=== PATIENT | male | born 1985 | race Caucasian/White ===

== ENCOUNTER 2017-06-18 23:03 | Emergency (ER) | payer OTHER, SELFPAY ==
[2017-06-18 23:15] VITALS: O2SAT 99
--- NOTE | 2017-06-18 23:37 | ERPHSYRPT ---
- History of Present Illness Time Seen by Provider: 06/18/17 23:26 Source: patient Exam Limitations: no limitations Patient Subjective Stated Complaint: pt states he was watching tv and suddenly had partial blindness in his lt eye. states headache is 4/10 Triage Nursing Assessment: pt alert and oriented, answers questions approp. pt ambulatory with steady gait noted. respirations nonlabored with lungs cta. puipls equal and reactive. bilat uppr and lower ext strength equal and strong. Physician History: ALL DAY PT HAS HAD A DIFFUSE HEADACHE. ONE HOUR AGO PT LOST LATERAL PERIPHERAL VISION IN HIS LEFT EYE. FEVER, VOMITING, CHEST PAIN, NUMBNESS, WEAKNESS ALL DENIED. Allergies/Adverse Reactions: Iodinated Contrast- Oral and IV Dye Allergy (Mild, Verified 06/18/17 23:18) Itching Home Medications: No Home Meds 1 ea [facility] UD 07/07/15 [History] Hx Tetanus, Diphtheria Vaccination/Date Given: Yes Hx Influenza Vaccination/Date Given: No Hx Pneumococcal Vaccination/Date Given: No Immunizations Up to Date: Yes - Review of Systems Constitutional: No Fever Eyes: Vision Changes Respiratory: No Dyspnea Cardiac: No Chest Pain Abdominal/Gastrointestinal: No Abdominal Pain, No Vomiting Neurological: Headache All Other Systems: Reviewed and Negative - Past Medical History Pertinent Past Medical History: Yes Neurological History: No Pertinent History ENT History: No Pertinent History Cardiac History: Other Respiratory History: Pulmonary Embolism Endocrine Medical History: No Pertinent History Musculoskeletal History: No Pertinent History GI Medical History: No Pertinent History History: No Pertinent History Psycho-Social History: Attention Deficit Disorder, Bipolar, Depression Male Reproductive Disorders: No Pertinent History Other Medical History: adhd - Past Surgical History Past Surgical History: Yes Neuro Surgical History: No Pertinent History Cardiac: No Pertinent History Respiratory: No Pertinent History Gastrointestinal: No Pertinent History Genitourinary: No Pertinent History Musculoskeletal: Orthopedic Surgery Male Surgical History: No Pertinent History Other Surgical History: left ankle fracture repair. DISTAL HUMEROUS FRACTURE REPAIR - Social History Smoking Status: Former smoker How long have you smoked: 5-6 YEARS Exposure to second hand smoke: No Drug Use: none Patient Lives Alone: No - Nursing Vital Signs Nursing Vital Signs: Initial Vital Signs Temperature 98.4 F 06/18/17 23:07 Pulse Rate 100 H 06/18/17 23:07 Respiratory Rate 18 06/18/17 23:07 Blood Pressure 168/98 06/18/17 23:07 O2 Sat by Pulse Oximetry 99 06/18/17 23:07 Pain Scale Pain Intensity 4 - Physical Exam General Appearance: alert Eye Exam: PERRL/EOMI, eyes nml inspection, other (FUNDOSCOPIC EXAM FOR LEFT EYE REVEALS SHARP TEMPORAL DISC MARGINS AND SPONTANEOUS VENOUS PULSATIONS.) Ears, Nose, Throat Exam: pharynx normal, moist mucous membranes Neck Exam: normal inspection Respiratory Exam: lungs clear Cardiovascular Exam: normal heart sounds Gastrointestinal/Abdomen Exam: soft, normal bowel sounds Back Exam: normal range of motion Extremity Exam: normal inspection, normal range of motion, No pedal edema Neurologic Exam: alert, cooperative, normal mood/affect, sensation nml, No motor deficits Skin Exam: warm, dry SpO2 Interpretation: normal SpO2: 99 Oxygen Delivery: Room Air - Course Nursing assessment & vital signs reviewed: Yes - CT Exams Head CT Interpretation: Tele-radiologist Report (NO ACUTE INTRACRANIAL ABNORMALITY.) Ordered Tests: Active Orders 24 hr Category Date Time Status HEAD WITHOUT CONTRAST [CT] Stat Exams 06/18/17 23:31 Taken CBC W DIFF Stat Lab 06/18/17 23:57 Completed CMP Stat Lab 06/18/17 23:57 Completed D-DIMER QUANTITATION Stat Lab 06/18/17 23:57 Completed MAGNESIUM Stat Lab 06/18/17 23:57 Completed UA W/RFX UR CULTURE Stat Lab 06/18/17 00:08 Completed Urine Triage Profile Stat Lab 06/18/17 00:08 Completed Lab/Rad Data: Laboratory Result Diagrams 06/18/17 23:57 06/18/17 23:57 Laboratory Results 06/18/17 06/18/17 06/18/17 Range/Units 23:57 23:57 23:57 WBC 10.4 (4.0-10.5) K/mm3 RBC 5.26 (4.1-5.6) M/mm3 Hgb 15.5 (12.5-18.0) gm/dl Hct 45.0 (42-50) % MCV 85.6 (78-100) fl MCH 29.5 (26-32) pg MCHC 34.4 (32-36) g/dl RDW 12.3 (11.5-14.0) % Plt Count 234 (150-450) K/mm3 MPV 9.2 (6-9.5) fl Gran % 57.2 (36.0-66.0) % Lymphocytes % 30.2 (24.0-44.0) % Monocytes % 8.3 (0.0-12.0) % Eosinophils % 3.7 (0.00-5.0) % Basophils % 0.6 (0.0-0.4) % Basophils # 0.06 (0-0.4) D-Dimer < 200 (0-500) ng/mL Sodium 142 (136-145) mEq/L Potassium 4.3 (3.5-5.1) mEq/L Chloride 104 (98-107) mEq/L Carbon Dioxide 27.1 (21-32) mEq/L Anion Gap 15.0 (5-15) MEQ/L BUN 11 (9-20) mg/dL Creatinine 1.19 (0.55-1.30) mg/dl Estimated GFR > 60 ML/MIN Glucose 97 (70-110) MG/DL Calcium 9.4 (8.5-10.1) mg/dL Magnesium 1.9 (1.8-2.4) mg/dL Total Bilirubin 0.20 (0.2-1.0) mg/dL AST 15 (15-37) U/L ALT 48 (12-78) U/L Alkaline Phosphatase 88 (46-116) U/L Serum Total Protein 7.5 (6.4-8.2) gm/dL Albumin 3.7 (3.4-5.0) g/dL Ur Collection Type Urine Color (YELLOW) Urine Appearance (CLEAR) Urine pH (5-6) Ur Specific [place] (1.005-1.025) Urine Protein (Negative) Urine Ketones (NEGATIVE) Urine Blood (0-5) Ramirez/ul Urine Nitrite (NEGATIVE) Urine Bilirubin (NEGATIVE) Urine Urobilinogen (0-1) mg/dL Ur Leukocyte Esterase (NEGATIVE) Urine Glucose (NEGATIVE) mg/dL Urine Opiates Level (NEGATIVE) Ur Methadone (NEGATIVE) Urine Barbiturates (NEGATIVE) Ur Phencyclidine (PCP) (NEGATIVE) Urine Amphetamine (NEGATIVE) U Benzodiazepine Level (NEGATIVE) Urine Cocaine (NEGATIVE) Urine Marijuana (THC) (NEGATIVE) Specimen Received 06/18/17 06/18/17 Range/Units 00:08 00:08 WBC (4.0-10.5) K/mm3 RBC (4.1-5.6) M/mm3 Hgb (12.5-18.0) gm/dl Hct (42-50) % MCV (78-100) fl MCH (26-32) pg MCHC (32-36) g/dl RDW (11.5-14.0) % Plt Count (150-450) K/mm3 MPV (6-9.5) fl Gran % (36.0-66.0) % Lymphocytes % (24.0-44.0) % Monocytes % (0.0-12.0) % Eosinophils % (0.00-5.0) % Basophils % (0.0-0.4) % Basophils # (0-0.4) D-Dimer (0-500) ng/mL Sodium (136-145) mEq/L Potassium (3.5-5.1) mEq/L Chloride (98-107) mEq/L Carbon Dioxide (21-32) mEq/L Anion Gap (5-15) MEQ/L BUN (9-20) mg/dL Creatinine (0.55-1.30) mg/dl Estimated GFR ML/MIN Glucose (70-110) MG/DL Calcium (8.5-10.1) mg/dL Magnesium (1.8-2.4) mg/dL Total Bilirubin (0.2-1.0) mg/dL AST (15-37) U/L ALT (12-78) U/L Alkaline Phosphatase (46-116) U/L Serum Total Protein (6.4-8.2) gm/dL Albumin (3.4-5.0) g/dL Ur Collection Type VOID Urine Color YELLOW (YELLOW) Urine Appearance CLEAR (CLEAR) Urine pH 6.0 (5-6) Ur Specific [place] 1.020 (1.005-1.025) Urine Protein NEGATIVE (Negative) Urine Ketones NEGATIVE (NEGATIVE) Urine Blood NEGATIVE (0-5) Ramirez/ul Urine Nitrite NEGATIVE (NEGATIVE) Urine Bilirubin NEGATIVE (NEGATIVE) Urine Urobilinogen NORMAL (0-1) mg/dL Ur Leukocyte Esterase NEGATIVE (NEGATIVE) Urine Glucose NEGATIVE (NEGATIVE) mg/dL Urine Opiates Level NEG. (NEGATIVE) Ur Methadone NEG. (NEGATIVE) Urine Barbiturates NEG. (NEGATIVE) Ur Phencyclidine (PCP) NEG. (NEGATIVE) Urine Amphetamine NEG. (NEGATIVE) U Benzodiazepine Level NEG. (NEGATIVE) Urine Cocaine NEG. (NEGATIVE) Urine Marijuana (THC) NEG. (NEGATIVE) Specimen Received 06/19/17 0005 - Departure Time of Disposition: 00:52 Departure Disposition: Home Clinical Impression: HEADACHE Condition: Stable Critical Care Time: No Referrals: DOCTOR,NO FAMILY [Primary Care Provider] - Instructions: Headache Additional Instructions: FOLLOW UP WITH PRIVATE DOCTOR TOMORROW.
[2017-06-19 00:05] LABS: BASOPHIL % 0.6 % (0.0-0.4); Eosinophil % 3.7 % (0.00-5.0); Granulocytes % 57.2 % (36.0-66.0); Lymphocytes % 30.2 % (24.0-44.0); Mean Cell Volume 85.6 fl (78-100); Mean Corpuscular Hemoglobin 29.5 pg (26-32); Mean Platelet Volume 9.2 fl (6-9.5); Monocytes % 8.3 % (0.0-12.0); Platelet Count 234 K/mm3 (150-450); Red Blood Count 5.26 M/mm3 (4.1-5.6); Red Cell Distribution Width 12.3 % (11.5-14.0); White Blood Count 10.4 K/mm3 (4.0-10.5)
[2017-06-19 00:15] LABS: ADD URINE CULTURE? NO (NO); Bilirubin NEGATIVE (NEGATIVE); Blood NEGATIVE Ery/ul (0-5); COMPLETE URINE MICROSCOPIC? NO; Collection Type VOID; Glucose NEGATIVE (NEGATIVE); Leukocyte Esterase NEGATIVE (NEGATIVE)
[2017-06-19 00:29] LABS: ALBUMIN 3.7 g/dL (3.4-5.0); ALKALINE PHOSPHATASE 88 U/L (46-116); BLOOD UREA NITROGEN 11 mg/dL (9-20); CHLORIDE 104 mEq/L (98-107); Carbon Dioxide 27.1 mEq/L (21-32); Glucose 97 MG/DL (70-110); MAGNESIUM 1.9 mg/dL (1.8-2.4); Potassium 4.3 mEq/L (3.5-5.1); SGOT/AST 15 U/L (15-37); SGPT/ALT 48 U/L (12-78); SODIUM 142 mEq/L (136-145); Total Protein 7.5 gm/dL (6.4-8.2)
[2017-06-19 01:03] VITALS: BP 167/92; PULSE 98
--- NOTE | 2017-06-19 09:13 | XRAY ---
Indication: Headache and left eye vision loss. No known injury. Multiple contiguous axial images obtained through the head without contrast. Comparison: December 24, 2015. Stable normal appearing brain parenchyma, ventricles, and bony calvarium. Visualized paranasal sinuses and mastoid air cells are clear. Impression: Stable normal CT head without contrast exam. Comment: Preliminary interpretation was made by [facility]. No discrepancy. CTDI 68.98
== END 2017-06-19 01:03 | disposition home or self-care (01) ==
LOC: ED 23:03
DX: R51 Headache (principal); H53.132 Sudden visual loss, left eye
CPT/HCPCS: 36415; 70450; 80053; 80307; 81002; 83735; 85025; 85379; 99284

== ENCOUNTER 2017-07-18 18:23 | Emergency (ER) | payer OTHER, SELFPAY | END 2017-07-18 18:49 | disposition left against medical advice (07) | LOC: ED 18:23 | DX: Z53.9 Procedure and treatment not carried out, unspecified reason (principal) ==

== ENCOUNTER 2017-07-31 17:19 | Emergency (ER) | payer OTHER, SELFPAY ==
[2017-07-31] MEDS ORDERED: MOTRIN 600 MG PO STA (17:30)
[2017-07-31] MEDS ORDERED: Rocephin 1000 MG INJ IM STA (17:30)
[2017-07-31] MEDS ORDERED: Sodium Chloride 0.9% 1000 ML 1,000 ML IV SCH (17:30)
--- NOTE | 2017-07-31 17:39 | ERPHSYRPT ---
- History of Present Illness Time Seen by Provider: 07/31/17 17:25 Source: patient Exam Limitations: no limitations Patient Subjective Stated Complaint: PT REPROTS IN PAST 10 HRS NOSE HAS BECOME RED WARM ET PAINFUL-STATES HE CAN FEEL HIS HEARTBEAR IN HIS SINUSES-DENIES INJURY Triage Nursing Assessment: PT PINK WRME T DRY-NO CONGESTION NOTED-RESP EASY ET NONLABORED Physician History: patient with redness and pain of nose onset yesterday; today increased pain; swelling of nose with redness; hx of staph infection of nose in past; some fever ; no trauma; no sore throat; no exposures; n o travel; no N&V; no dental pain or ear pain; some discomfort around sinuses L>R; no epistaxis Timing/Duration: today (worse), yesterday (onset), gradual onset, worse Severity: severe Modifying Factors: Improves With: nothing Associated Symptoms: chills, fever, other (clear nasal drainage from sinus) Allergies/Adverse Reactions: Iodinated Contrast- Oral and IV Dye Allergy (Mild, Verified 07/31/17 17:27) Itching Home Medications: No Home Meds [No Home Meds] 1 [facility] 07/07/15 [History] Hx Tetanus, Diphtheria Vaccination/Date Given: Yes Hx Influenza Vaccination/Date Given: Yes (2016) Hx Pneumococcal Vaccination/Date Given: No Immunizations Up to Date: Yes - Review of Systems Constitutional: Fever, Chills Eyes: Eye Pain (below left ), No Eye Redness, No Itchy, No Photophobia, No Vision Changes Ears, Nose, & Throat: Nose Pain, Nose Congestion, Nose Discharge, Sinus Drainage , No Ear Pain, No Tinnitus, No Epistaxis, No Mouth Pain, No Loose Teeth, No Throat Pain, No Throat Swelling, No Hoarse, No Painful Swallowing Respiratory: No Cough, No Dyspnea, No Wheezing Cardiac: No Chest Pain, No Palpitations, No Syncope Abdominal/Gastrointestinal: No Abdominal Pain, No Nausea, No Vomiting, No Diarrhea Genitourinary Symptoms: No Symptoms Musculoskeletal: No Symptoms Skin: Cellulitis (nose), No Rash, No Skin Lesions Neurological: No Symptoms Psychological: No Symptoms Endocrine: No Symptoms Hematologic/Lymphatic: No Symptoms Immunological/Allergic: No Symptoms - Past Medical History Pertinent Past Medical History: Yes Neurological History: No Pertinent History ENT History: No Pertinent History Cardiac History: Other Respiratory History: Pulmonary Embolism Endocrine Medical History: No Pertinent History Musculoskeletal History: No Pertinent History GI Medical History: No Pertinent History History: No Pertinent History Psycho-Social History: Attention Deficit Disorder, Bipolar, Depression Male Reproductive Disorders: No Pertinent History Other Medical History: adhd - Past Surgical History Past Surgical History: Yes Neuro Surgical History: No Pertinent History Cardiac: No Pertinent History Respiratory: No Pertinent History Gastrointestinal: No Pertinent History Genitourinary: No Pertinent History Musculoskeletal: Orthopedic Surgery Male Surgical History: No Pertinent History Other Surgical History: left ankle fracture repair. DISTAL HUMEROUS FRACTURE REPAIR - Social History Smoking Status: Former smoker How long have you smoked: 5-6 YEARS Exposure to second hand smoke: No Alcohol Use: Socially Drug Use: none Patient Lives Alone: No Significant Family History: no pertinent family hx - Nursing Vital Signs Nursing Vital Signs: Initial Vital Signs Temperature 99.5 F 07/31/17 17:22 Pulse Rate 96 H 07/31/17 17:22 Respiratory Rate 20 07/31/17 17:22 Blood Pressure 147/91 07/31/17 17:22 O2 Sat by Pulse Oximetry 96 07/31/17 17:22 Pain Scale Pain Intensity 5 - Physical Exam General Appearance: moderate distress, alert Eye Exam: PERRL/EOMI, eyes nml inspection, other (no periorbital tenderness but discomfort below left; EOM full without pain), No photophobia Ears, Nose, Throat Exam: TMs normal, pharynx normal, moist mucous membranes, other (dental caries with red, swollen tender nose; no specific lesion; clear nasal d/c; sinus poor transillumination; tender left max), No pharyngeal erythema Neck Exam: normal inspection, non-tender, supple, full range of motion, No meningismus, No Kernig's, No carotid bruit, No JVD, No lymphadenopathy Respiratory Exam: normal breath sounds, lungs clear, airway intact, No chest tenderness, No respiratory distress, No rhonchi, No wheezing Cardiovascular Exam: regular rate/rhythm, normal heart sounds, normal peripheral pulses, capillary refill <2 sec, No murmur Gastrointestinal/Abdomen Exam: soft, normal bowel sounds, No tenderness, No organomegaly Rectal Exam: deferred Back Exam: normal inspection, normal range of motion, No CVA tenderness Extremity Exam: normal inspection, normal range of motion, No pedal edema Neurologic Exam: alert, oriented x 3, cooperative, support worker II-XII nml as tested, normal mood/affect, nml cerebellar function, nml station & gait, sensation nml Skin Exam: normal color, warm, dry, other (red, warm, tender induration nose), No rash, No cyanosis Lymphatic Exam: No adenopathy SpO2 Interpretation: normal SpO2: 96 Oxygen Delivery: Room Air - Course Nursing assessment & vital signs reviewed: Yes - CT Exams Maxillofacial Bones CT Interpretation: Tele-radiologist Report, Other (negative except mild STS nose ) Ordered Tests: Active Orders 24 hr Category Date Time Status Accucheck STAT Care 07/31/17 17:30 Active IV Insertion STAT Care 07/31/17 17:30 Active Pulse Oximetry (ED) STAT Care 07/31/17 17:30 Active Re-Check Vital Signs STAT Care 07/31/17 17:30 Active FACIAL BONES WO CONTRAST [CT] Stat Exams 07/31/17 17:32 Taken BLOOD CULTURE Stat Lab 07/31/17 17:55 Received BMP Stat Lab 07/31/17 17:45 Completed CBC W DIFF Stat Lab 07/31/17 17:45 Completed Lactic Acid Stat Lab 07/31/17 18:07 Completed Medication Summary Generic Name Dose Route Start Last Admin Trade Name Freq PRN Reason Stop Dose Admin Ceftriaxone Sodium mg 07/31/17 17:30 Rocephin 1000 Mg Inj IM 07/31/17 17:31 STAT STA Sodium Chloride 1,000 mls @ 250 mls/hr 07/31/17 17:30 07/31/17 17:51 Sodium Chloride 0.9% 1000 Ml IV 08/30/17 17:29 250 mls/hr .Q4H CADENCE Administration Discontinued Medications Generic Name Dose Route Start Last Admin Trade Name Freq PRN Reason Stop Dose Admin Ceftriaxone Sodium/Dextrose Confirm 07/31/17 18:18 Rocephin 1 Gm-D5w 50 Ml Bag Administered 07/31/17 18:19 Dose 1 g in 50 mls @ ud IV .STK-MED ONE Ibuprofen 600 mg 07/31/17 17:30 07/31/17 17:45 Motrin 600 Mg PO 07/31/17 17:31 600 mg STAT STA Administration Ibuprofen Confirm 07/31/17 17:42 Motrin 600 Mg Administered 07/31/17 17:43 Dose 600 mg .ROUTE .STK-MED ONE Lab/Rad Data: Laboratory Result Diagrams 07/31/17 17:45 07/31/17 17:45 Laboratory Results 07/31/17 07/31/17 07/31/17 Range/Units 18:07 17:45 17:45 WBC 11.1 H (4.0-10.5) K/mm3 RBC 4.54 (4.1-5.6) M/mm3 Hgb 13.6 (12.5-18.0) gm/dl Hct 38.6 L (42-50) % MCV 85.0 (78-100) fl MCH 30.0 (26-32) pg MCHC 35.2 (32-36) g/dl RDW 13.3 (11.5-14.0) % Plt Count 223 (150-450) K/mm3 MPV 9.1 (6-9.5) fl Gran % 63.7 (36.0-66.0) % Lymphocytes % 25.8 (24.0-44.0) % Monocytes % 8.4 (0.0-12.0) % Eosinophils % 1.7 (0.00-5.0) % Basophils % 0.4 (0.0-0.4) % Basophils # 0.04 (0-0.4) Sodium 146 H (136-145) mEq/L Potassium 3.9 (3.5-5.1) mEq/L Chloride 107 (98-107) mEq/L Carbon Dioxide 28.1 (21-32) mEq/L Anion Gap 14.3 (5-15) MEQ/L BUN 15 (9-20) mg/dL Creatinine 1.20 (0.55-1.30) mg/dl Estimated GFR > 60 ML/MIN Glucose 98 (70-110) MG/DL Lactic Acid 1.2 (0.4-2.0) Calcium 9.5 (8.5-10.1) mg/dL reviewed - Progress Progress: re-examined (after meds and CT) Progress Note: 07/31/17 17:40 will check labs; give IV fluids and ATBs; get blood culture and check CT for any periorbital involvement; will recheck 07/31/17 18:[address]; labs pending; IV fluids and meds given; accucheck = 81; will monitor and recheck 07/31/17 18:25 CBC slightly elevated WBC at 11,1 bi sguftl kactuc ok at 1,2; CT pending; ATBs and IV going; no change in exam 07/31/17 18:43 CT , ok; renal function and lytes ok; treatment plan and instructions given Counseled pt/family regarding: lab results, diagnosis, need for follow-up, rad results - Departure Time of Disposition: 18:47 Departure Disposition: Home Clinical Impression: Cellulitis of nose Condition: Stable Critical Care Time: No Referrals: RAJ MATTHEW MD [Primary Care Provider] - Instructions: Cellulitis -- Adult Additional Instructions: warm compresses; clean; Follow-up with family doctor as directed. Call for appointment. Return if any problems. If you smoke please stop. Call or follow up with your family doctor for assistance if you need it to stop. Please wear your seatbelt when driving. Have a nice day. Thank you for allowing us to participate in your care today. :o) Dr Andres Perez Prescriptions: Doxycycline Hyclate 100 mg [Vibramycin 100 mg] 100 mg IV BID #28 tab-cap Hydrocodon/Ibupr 7.5mg/200mg [Vicoprofen 7.5mg/200mg Tablet] 1 tab PO Q6- 8HPRN PRN #14 tablet PRN Reason: Pain
[2017-07-31] MEDS ORDERED: Sodium Chloride 0.9% 1000 ML 1,000 ML ONE (17:42)
[2017-07-31] MEDS ORDERED: MOTRIN 600 MG ONE (17:42)
[2017-07-31 18:05] LABS: BASOPHIL % 0.4 % (0.0-0.4); Eosinophil % 1.7 % (0.00-5.0); Granulocytes % 63.7 % (36.0-66.0); Lymphocytes % 25.8 % (24.0-44.0); Mean Platelet Volume 9.1 fl (6-9.5); Monocytes % 8.4 % (0.0-12.0); Platelet Count 223 K/mm3 (150-450); Red Blood Count 4.54 M/mm3 (4.1-5.6); Red Cell Distribution Width 13.3 % (11.5-14.0); White Blood Count 11.1 K/mm3 (4.0-10.5)
[2017-07-31] MEDS ORDERED: ROCEPHIN 1 Gm-D5w 50 ml Bag** 1 G/50 ML IVPB IV ONE (18:18)
[2017-07-31 18:25] LABS: ANION GAP 14.3 MEQ/L (5-15); BLOOD UREA NITROGEN 15 mg/dL (9-20); CHLORIDE 107 mEq/L (98-107); Carbon Dioxide 28.1 mEq/L (21-32); Glucose 98 MG/DL (70-110); Potassium 3.9 mEq/L (3.5-5.1); SODIUM 146 mEq/L (136-145)
[2017-07-31 18:56] VITALS: BP 143/91; PULSE 78; O2SAT 98
--- NOTE | 2017-08-01 08:41 | XRAY ---
Indication: Nose erythema/swelling. Pain, fever, and infection. No known injury. Multiple contiguous images obtained through the facial bones. Sagittal and coronal reformatted images obtained. Comparison: December 24, 2015. The nose now demonstrates soft tissue swelling. No acute fracture, suspicious bony lesions, or radiopaque foreign body. Orbits including roof, byrd, and floors intact. Paranasal sinuses are pneumatized and clear. Stable minimal nasal septal deviation to the left. There are again scattered centimeter/subcentimeter bilateral cervical/submandibular nodes none pathologically enlarged. Remaining visualized noncontrasted soft tissues including orbits and base of the brain unremarkable. Minimal C3-C5 degenerative disc disease. Impression: 1. Soft tissue swelling of the nose. Based on clinical history, rule out cellulitis. 2. Remaining CT facial bones negative. CT DI 59.47
== END 2017-07-31 18:59 | disposition home or self-care (01) ==
LOC: ED 17:19
DX: J34.0 Abscess, furuncle and carbuncle of nose (principal)
CPT/HCPCS: 36000; 36415; 70486; 80048; 82962; 83605; 85025; 87040; 96360; 96365; 99284; J0696; A9270-GY

== ENCOUNTER 2018-01-20 08:20 | Emergency (ER) | payer OTHER, SELFPAY ==
[2018-01-20] MEDS ORDERED: TYLENOL 325 MG PO ONE (08:48)
[2018-01-20] MEDS ORDERED: PROVENTIL 2.5 MG/3 ML NEB IH ONE ×2 (08:48→09:08)
--- NOTE | 2018-01-20 08:48 | ERPHSYRPT ---
- History of Present Illness Time Seen by Provider: 01/20/18 08:34 Source: patient Patient Subjective Stated Complaint: Pt states "I am sicker than a dog. I have been coughing up this white and neon green stuff. I also am out of my lisinopril. I do not have the money to go to the doctor to get it filled." Triage Nursing Assessment: Pt alert and oriented X 3, skin pwd. Pt ambulates with an upright steady gait, able to speak in clear full sentences. occasional cough Physician History: C: cough Hx: 32 y/o with hx of HTN. Nonsmoker. Cough with white phlegm. Malaise. No fever or chills. Some rhinorrhea. No hx of asthma. 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 He is soon to get insurance. Out of lisinopril due to finances. No hx of kidney problems. Sees Dr Matthew. Allergies/Adverse Reactions: Iodinated Contrast- Oral and IV Dye Allergy (Mild, Verified 07/31/17 17:27) Itching Home Medications: Lisinopril [Lisinopril] 40 mg PO DAILY 01/20/18 [History] Hx Tetanus, Diphtheria Vaccination/Date Given: Yes Hx Influenza Vaccination/Date Given: No Hx Pneumococcal Vaccination/Date Given: No Immunizations Up to Date: Yes - Review of Systems Constitutional: Malaise, No Fever, No Chills Eyes: No Symptoms Ears, Nose, & Throat: Nose Congestion Respiratory: Cough Cardiac: No Chest Pain Abdominal/Gastrointestinal: No Abdominal Pain, No Nausea, No Vomiting, No Diarrhea Genitourinary Symptoms: No Dysuria Skin: No Rash Neurological: No Headache All Other Systems: Reviewed and Negative - Past Medical History Pertinent Past Medical History: Yes Neurological History: No Pertinent History ENT History: No Pertinent History Cardiac History: Other Respiratory History: Pulmonary Embolism Endocrine Medical History: No Pertinent History Musculoskeletal History: No Pertinent History GI Medical History: No Pertinent History History: No Pertinent History Psycho-Social History: Attention Deficit Disorder, Bipolar, Depression Male Reproductive Disorders: No Pertinent History Other Medical History: adhd - Past Surgical History Past Surgical History: Yes Neuro Surgical History: No Pertinent History Cardiac: No Pertinent History Respiratory: No Pertinent History Gastrointestinal: No Pertinent History Genitourinary: No Pertinent History Musculoskeletal: Orthopedic Surgery Male Surgical History: No Pertinent History Other Surgical History: left ankle fracture repair. DISTAL HUMERUS FRACTURE REPAIR - Social History Smoking Status: Former smoker How long have you smoked: 5-6 YEARS Exposure to second hand smoke: No Alcohol Use: Socially Drug Use: none Patient Lives Alone: Yes Significant Family History: no pertinent family hx - Nursing Vital Signs Nursing Vital Signs: Initial Vital Signs Temperature 98.4 F 01/20/18 08:28 Pulse Rate 80 01/20/18 08:28 Respiratory Rate 20 01/20/18 08:28 Blood Pressure 161/101 01/20/18 08:28 O2 Sat by Pulse Oximetry 99 01/20/18 08:28 Pain Scale Pain Intensity 0 - Physical Exam General Appearance: alert Eye Exam: PERRL/EOMI Ears, Nose, Throat Exam: normal ENT inspection, moist mucous membranes Neck Exam: normal inspection, non-tender, supple Respiratory Exam: normal breath sounds, No respiratory distress, No wheezing Cardiovascular Exam: regular rate/rhythm, No murmur Gastrointestinal/Abdomen Exam: soft, No tenderness, No distention Extremity Exam: normal inspection, normal range of motion, No calf tenderness, No pedal edema Neurologic Exam: alert, oriented x 3, cooperative, sensation nml, No motor deficits Skin Exam: warm, dry, No rash SpO2 Interpretation: normal SpO2: 99 Oxygen Delivery: Room Air - Course Nursing assessment & vital signs reviewed: Yes Ordered Tests: Active Orders 24 hr Category Date Time Status CHEST 2 VIEWS (PA AND LAT) Stat Exams 01/20/18 08:48 Completed Respiratory Nebulizer STAT RT 01/20/18 08:48 Active Medication Summary Discontinued Medications Generic Name Dose Route Start Last Admin Trade Name Freq PRN Reason Stop Dose Admin Acetaminophen 650 mg 01/20/18 08:48 01/20/18 09:03 Tylenol 325 Mg PO 01/20/18 08:49 650 mg STAT ONE Administration Acetaminophen Confirm 01/20/18 09:01 Tylenol 325 Mg Administered 01/20/18 09:02 Dose 650 mg .ROUTE .STK-MED ONE Albuterol Sulfate 2.5 mg 01/20/18 08:48 01/20/18 09:17 Proventil 2.5 Mg/3 Ml Neb IH 01/20/18 08:49 2.5 mg STAT ONE Administration Albuterol Sulfate Confirm 01/20/18 09:08 Proventil 2.5 Mg/3 Ml Neb Administered 01/20/18 09:09 Dose 2.5 mg IH .STK-MED ONE - Progress Progress Note: 01/20/18 08:47 Will refill lisinopril and he will follow up with Dr Matthew. He has acute bronchitis with viral URI. No sign of pneumonia. Symptoms treatment indicated. Instr given. Counseled pt/family regarding: diagnosis, need for follow-up, rad results - Departure Time of Disposition: 09:23 Departure Disposition: Home Clinical Impression: Hypertension, Acute bronchitis Condition: Stable Critical Care Time: No Referrals: RAJ MATTHEW MD [Primary Care Provider] - Instructions: High Blood Pressure (DC), Acute Bronchitis, Cough, Adult (DC) Additional Instructions: Follow up with Dr Matthew. Rx albuterol. Rx lisinopril. Prescriptions: Albuterol Sulfate [Albuterol Sulfate Hfa] 2 puff IH Q4-6HPRN PRN #1 [email or web address] PRN Reason: cough or wheeze Lisinopril [Zestril] 40 mg PO DAILY #30 tablet
[2018-01-20] MEDS ORDERED: TYLENOL 325 MG ONE (09:01)
--- NOTE | 2018-01-20 09:14 | XRAY ---
Indication: Cough. Comparison: December 24, 2015. PA/lateral chest again demonstrates normal heart and lungs with incidental scattered calcified granulomas. Bony thorax intact. No new/acute findings.
[2018-01-20 09:23] VITALS: BP 125/80; O2SAT 99
[2018-01-20 09:26] VITALS: PULSE 69
== END 2018-01-20 09:28 | disposition home or self-care (01) ==
LOC: ED 08:20
DX: J20.9 Acute bronchitis, unspecified (principal); I10 Essential (primary) hypertension
CPT/HCPCS: 71046; 94640; 99283; A9270-GY

== ENCOUNTER 2018-07-11 10:58 | Emergency (ER) | payer BC ==
[2018-07-11] MEDS ORDERED: Sodium Chloride 0.9% 1000 ML 1,000 ML IV STA (11:15)
[2018-07-11] MEDS ORDERED: Sodium Chloride 0.9% 1000 ML 1,000 ML ONE (11:20)
[2018-07-11] MEDS ORDERED: solu-CORTEF 100MG IV ONE (11:23)
[2018-07-11] MEDS ORDERED: BENADRYL 50 MG/ML IV ONE (11:23)
--- NOTE | 2018-07-11 11:29 | ERPHSYRPT ---
- History of Present Illness Time Seen by Provider: 07/11/18 11:16 Historian: patient Exam Limitations: no limitations Physician History: 33 y/o male with history of PE diagnosed in October of 2014 comes to the ER with palpitations and left sided chest pain that started just prior to arrival while driving in his car. Pt arrives with a HR in the 140's but over the last few minutes went down to the 120's. Pt describes the left sided chest pain as sharp, intermittent, as high as 6/10 and pt has not taken any pain meds. Pt also admits to dizziness, but denies any shortness of breath, nausea or vomiting. Timing/Duration: today Activities at Onset: none Location: other (left sided) Chest Pain Radiation: no radiation Severity of Pain-Max: moderate Severity of Pain-Current: mild Modifying Factors: Improves With: nothing Associated Symptoms: palpitations Prior Chest Pain/Cardiac Workup: angina Nitro Today/Relief: no nitro taken today Aspirin Treatment Today: no aspirin today Allergies/Adverse Reactions: Iodinated Contrast- Oral and IV Dye Allergy (Mild, Verified 07/11/18 11:09) Itching Home Medications: Lisinopril 40 mg PO DAILY 01/20/18 [History] Hx Tetanus, Diphtheria Vaccination/Date Given: Yes Hx Influenza Vaccination/Date Given: No Hx Pneumococcal Vaccination/Date Given: No - Review of Systems Constitutional: No Fever, No Chills Eyes: No Symptoms Ears, Nose, & Throat: No Symptoms Respiratory: No Cough, No Dyspnea, No Dyspnea on Exertion (PAEZ) Cardiac: Chest Pain, No Edema, No Syncope Abdominal/Gastrointestinal: No Abdominal Pain, No Nausea, No Vomiting, No Diarrhea Genitourinary Symptoms: No Dysuria Musculoskeletal: No Back Pain, No Neck Pain Skin: No Rash Neurological: Dizziness, No Focal Weakness, No Sensory Changes Psychological: No Symptoms Endocrine: No Symptoms All Other Systems: Reviewed and Negative - Past Medical History Pertinent Past Medical History: Yes Neurological History: No Pertinent History ENT History: No Pertinent History Cardiac History: Other Respiratory History: Pulmonary Embolism Endocrine Medical History: No Pertinent History Musculoskeletal History: No Pertinent History GI Medical History: No Pertinent History History: No Pertinent History Psycho-Social History: Attention Deficit Disorder, Bipolar, Depression Male Reproductive Disorders: No Pertinent History Other Medical History: adhd - Past Surgical History Past Surgical History: Yes Neuro Surgical History: No Pertinent History Cardiac: No Pertinent History Respiratory: No Pertinent History Gastrointestinal: No Pertinent History Genitourinary: No Pertinent History Musculoskeletal: Orthopedic Surgery Male Surgical History: No Pertinent History Other Surgical History: left ankle fracture repair. DISTAL HUMERUS FRACTURE REPAIR - Social History Smoking Status: Former smoker How long have you smoked: 5-6 YEARS Exposure to second hand smoke: No Alcohol Use: Socially Drug Use: none Patient Lives Alone: Yes Significant Family History: no pertinent family hx - Nursing Vital Signs Nursing Vital Signs: Initial Vital Signs Temperature 98.1 F 07/11/18 11:17 Pulse Rate 127 H 07/11/18 11:17 Respiratory Rate 25 H 07/11/18 11:17 Blood Pressure 170/92 07/11/18 11:17 O2 Sat by Pulse Oximetry 97 07/11/18 11:17 Pain Scale Pain Intensity 0 - Physical Exam General Appearance: no apparent distress, alert Eye Exam: PERRL/EOMI, eyes nml inspection Ears, Nose, Throat Exam: normal ENT inspection, moist mucous membranes Neck Exam: normal inspection, non-tender, supple, full range of motion Respiratory Exam: normal breath sounds, lungs clear, No chest tenderness, No respiratory distress Cardiovascular Exam: regular rate/rhythm, normal heart sounds, tachycardia Gastrointestinal/Abdomen Exam: soft, No tenderness, No mass Back Exam: normal inspection, No CVA tenderness, No vertebral tenderness Extremity Exam: normal inspection, normal range of motion Neurologic Exam: alert, oriented x 3, cooperative, normal mood/affect, sensation nml, No motor deficits Skin Exam: normal color, warm, dry - Course Nursing assessment & vital signs reviewed: Yes EKG Interpreted by Me: RATE (HR 128), Sinus Tach, Right Bundle Branch Block Ordered Tests: Active Orders 24 hr Category Date Time Status Handle Sewer STAT Care 07/11/18 11:16 Active EKG-ER Only STAT Care 07/11/18 11:15 Active IV Insertion STAT Care 07/11/18 11:15 Active CHEST WITH CONTRAST [CT] Stat Exams 07/11/18 11:22 Completed CBC W DIFF Stat Lab 07/11/18 11:20 Completed CK-Creatinine Phosphokinase Stat Lab 07/11/18 11:20 Completed CMP Stat Lab 07/11/18 11:20 Completed D-DIMER QUANTITATION Stat Lab 07/11/18 11:20 Completed MAGNESIUM Stat Lab 07/11/18 Received NT PRO BNP Stat Lab 07/11/18 11:20 Completed PROTIME WITH INR Stat Lab 07/11/18 11:20 Completed PTT Stat Lab 07/11/18 11:20 Completed TROPONIN Q3H Lab 07/11/18 11:20 Completed TROPONIN Q3H Lab 07/11/18 14:30 Ordered TROPONIN Q3H Lab 07/11/18 17:30 Ordered TROPONIN Q3H Lab 07/11/18 20:30 Ordered TROPONIN Q3H Lab 07/11/18 23:30 Ordered Medication Summary Discontinued Medications Generic Name Dose Route Start Last Admin Trade Name Amena PRN Reason Stop Dose Admin Diphenhydramine HCl 25 mg 07/11/18 11:23 07/11/18 11:34 Benadryl 50 Mg/Ml IV 07/11/18 11:24 25 mg STAT ONE Administration Diphenhydramine HCl Confirm 07/11/18 11:30 Benadryl 50 Mg/Ml Administered 07/11/18 11:31 Dose 50 mg .ROUTE .STK-MED ONE Hydrocortisone Sodium Succinate 100 mg 07/11/18 11:23 07/11/18 11:39 Solu-Cortef 100mg IV 07/11/18 11:24 100 mg STAT ONE Administration Hydrocortisone Sodium Succinate Confirm 07/11/18 11:30 Solu-Cortef 100mg Administered 07/11/18 11:31 Dose 100 mg .ROUTE .STK-MED ONE Sodium Chloride 1,000 mls @ 999 mls/hr 07/11/18 11:15 07/11/18 11:22 Sodium Chloride 0.9% 1000 Ml IV 07/11/18 12:15 999 mls/hr .Q1H1M STA Administration Sodium Chloride Confirm 07/11/18 11:20 Sodium Chloride 0.9% 1000 Ml Administered 07/11/18 11:21 Dose 1,000 mls @ ud .ROUTE .STK-MED ONE Potassium Chloride 40 meq 07/11/18 12:06 07/11/18 12:14 Klor Con 10 Meq PO 07/11/18 12:07 40 meq STAT ONE Administration Potassium Chloride Confirm 07/11/18 12:14 Klor Con 10 Meq Administered 07/11/18 12:15 Dose 40 meq PO .STK-MED ONE Lab/Rad Data: Laboratory Result Diagrams 07/11/18 11:20 07/11/18 11:20 Laboratory Results 07/11/18 07/11/18 07/11/18 Range/Units Unknown 11:20 11:20 WBC (4.0-10.5) K/mm3 RBC (4.1-5.6) M/mm3 Hgb (12.5-18.0) gm/dl Hct (42-50) % MCV (78-100) fl MCH (26-32) pg MCHC (32-36) g/dl RDW (11.5-14.0) % Plt Count (150-450) K/mm3 MPV (6-9.5) fl Gran % (36.0-66.0) % Eos # (Auto) (0-0.5) Absolute Lymphs (auto) (1.0-4.6) Absolute Monos (auto) (0.0-1.3) Lymphocytes % (24.0-44.0) % Monocytes % (0.0-12.0) % Eosinophils % (0.00-5.0) % Basophils % (0.0-0.4) % Absolute Granulocytes (1.4-6.9) Basophils # (0-0.4) PT 10.8 (8.83-12.87) SECONDS INR 0.93 (0.8-3.0) APTT 27.6 (24.1-36.1) SECONDS D-Dimer < 119 L (215-500) ng/mL Sodium (137-145) mmol/L Potassium (3.5-5.1) mmol/L Chloride (98-107) mmol/L Carbon Dioxide (22-30) mmol/L Anion Gap (5-15) MEQ/L BUN (9-20) mg/dL Creatinine (0.66-1.25) mg/dL Estimated GFR ML/MIN Glucose (74-106) mg/dL Calcium (8.4-10.2) mg/dL Magnesium 2.2 (1.6-2.3) mg/dL Total Bilirubin (0.2-1.3) mg/dL AST (17-59) U/L ALT (0-50) U/L Alkaline Phosphatase (38-126) U/L Creatine Kinase (55-170) U/L Troponin I < 0.012 (0.000-0.034) ng/mL NT-Pro-B Natriuret Pep (0-450) pg/mL Serum Total Protein (6.3-8.2) g/dL Albumin (3.5-5.0) g/dL 07/11/18 07/11/18 Range/Units 11:20 11:20 WBC 11.6 H (4.0-10.5) K/mm3 RBC 5.12 (4.1-5.6) M/mm3 Hgb 15.9 (12.5-18.0) gm/dl Hct 45.3 (42-50) % MCV 88.5 (78-100) fl MCH 31.1 (26-32) pg MCHC 35.1 (32-36) g/dl RDW 12.4 (11.5-14.0) % Plt Count 296 (150-450) K/mm3 MPV 9.7 H (6-9.5) fl Gran % 52.6 (36.0-66.0) % Eos # (Auto) 0.37 (0-0.5) Absolute Lymphs (auto) 4.17 (1.0-4.6) Absolute Monos (auto) 0.92 (0.0-1.3) Lymphocytes % 35.9 (24.0-44.0) % Monocytes % 7.9 (0.0-12.0) % Eosinophils % 3.2 (0.00-5.0) % Basophils % 0.4 (0.0-0.4) % Absolute Granulocytes 6.11 (1.4-6.9) Basophils # 0.05 (0-0.4) PT (8.83-12.87) SECONDS INR (0.8-3.0) APTT (24.1-36.1) SECONDS D-Dimer (215-500) ng/mL Sodium 145 (137-145) mmol/L Potassium 3.3 L (3.5-5.1) mmol/L Chloride 108 H (98-107) mmol/L Carbon Dioxide 23 (22-30) mmol/L Anion Gap 17.8 H (5-15) MEQ/L BUN 12 (9-20) mg/dL Creatinine 0.94 (0.66-1.25) mg/dL Estimated GFR > 60.0 ML/MIN Glucose 125 H (74-106) mg/dL Calcium 9.5 (8.4-10.2) mg/dL Magnesium (1.6-2.3) mg/dL Total Bilirubin 0.40 (0.2-1.3) mg/dL AST 24 (17-59) U/L ALT 33 (0-50) U/L Alkaline Phosphatase 99 (38-126) U/L Creatine Kinase 61 (55-170) U/L Troponin I (0.000-0.034) ng/mL NT-Pro-B Natriuret Pep 23.8 (0-450) pg/mL Serum Total Protein 7.9 (6.3-8.2) g/dL Albumin 4.8 (3.5-5.0) g/dL - Progress Progress: improved Progress Note: 07/11/18 12:28 Pt feels better with no complaints of chest pain or palpitations. The HR has come down to 105 after receiving NS fluids. The cardiac workup is within normal limits. The CTA chest does not show any pulmonary embolus. The K is 3.3 and the patient will receive potassium replacement and has gotten NS fluids. Pt will be d/c home and was advised to return to the ER if he should have any chest pain, shortness of breath, dizziness or palpitations. - Departure Time of Disposition: 12:30 Departure Disposition: Home Clinical Impression: Tachycardia, Hypokalemia, Palpitations Condition: Stable Critical Care Time: No Referrals: RAJ MATTHEW MD [Primary Care Provider] - Instructions: Palpitations (DC), Tachycardia (DC), Hypokalemia (DC) Additional Instructions: Return to the ER if you should have any chest pain, shortness of breath, palpitations or dizziness.
[2018-07-11] MEDS ORDERED: BENADRYL 50 MG/ML ONE (11:30)
[2018-07-11] MEDS ORDERED: solu-CORTEF 100MG ONE (11:30)
[2018-07-11 11:35] LABS: BASOPHIL % 0.4 % (0.0-0.4); Basophil (Absolute #) 0.05 (0-0.4); Eosinophil % 3.2 % (0.00-5.0); Eosinophil (Absolute #) 0.37 (0-0.5); Granulocyte Absolute (ANC) 6.11 (1.4-6.9); Granulocytes % 52.6 % (36.0-66.0); Hematocrit 45.3 % (42-50); Hemoglobin 15.9 gm/dl (12.5-18.0); Lymphocyte (Absolute #) 4.17 (1.0-4.6); Lymphocytes % 35.9 % (24.0-44.0); Mean Cell Volume 88.5 fl (78-100); Mean Corpuscular Hemoglobin 31.1 pg (26-32); Mean Corpuscular Hgb Concent. 35.1 g/dl (32-36); Mean Platelet Volume 9.7 fl (6-9.5); Monocyte (Absolute #) 0.92 (0.0-1.3); Monocytes % 7.9 % (0.0-12.0); Platelet Count 296 K/mm3 (150-450); Red Blood Count 5.12 M/mm3 (4.1-5.6); Red Cell Distribution Width 12.4 % (11.5-14.0); White Blood Count 11.6 K/mm3 (4.0-10.5)
[2018-07-11 11:51] LABS: INR 0.93 (0.8-3.0)
[2018-07-11 11:53] LABS: PTT 27.6 SECONDS (24.1-36.1)
[2018-07-11 12:04] LABS: ALBUMIN 4.8 g/dL (3.5-5.0); ALKALINE PHOSPHATASE 99 U/L (38-126); ANION GAP 17.8 MEQ/L (5-15); BLOOD UREA NITROGEN 12 mg/dL (9-20); CHLORIDE 108 mmol/L (98-107); CK-Creatinine Phosphokinase 61 U/L (55-170); Calcium 9.5 mg/dL (8.4-10.2); Carbon Dioxide 23 mmol/L (22-30); Creatinine 1 0.94 mg/dL (0.66-1.25); D-DIMER QUANTITATION < 119 ng/mL (215-500); Glucose 125 mg/dL (74-106); NT PRO BNP 23.8 pg/mL (0-450); Potassium 3.3 mmol/L (3.5-5.1); SGOT/AST 24 U/L (17-59); SGPT/ALT 33 U/L (0-50); SODIUM 145 mmol/L (137-145); Total Protein 7.9 g/dL (6.3-8.2)
[2018-07-11] MEDS ORDERED: Klor Con 10 MEQ PO ONE ×2 (12:06→12:14)
[2018-07-11 12:14] VITALS: BP 128/86; PULSE 107; O2SAT 98
--- NOTE | 2018-07-11 12:21 | XRAY ---
Indication: Chest pain and palpitations. History PE. Multiple contiguous axial images obtained through the chest using 100 cc Isovue 370 contrast and PE for occult. Comparison: May 01, 2015. There is again suboptimal opacification of the pulmonary arteries limiting evaluation of the lobar and segmental branches. No large central pulmonary embolus. Heart is not enlarged. Aorta is normal in course and caliber. Stable multiple mediastinal and bilateral hilar calcified nodes. No pathologic mediastinal/hilar lymphadenopathy. Examination of the lung parenchyma again demonstrates scattered bilateral calcified granulomas and minimal bibasilar fibrosis/scarring. No new pulmonary mass, infiltrate, or effusion. Bony thorax intact again with mild multilevel endplate osteophytes and Schmorl nodes. Limited upper abdomen including adrenal glands unremarkable. Impression: 1. Again suboptimal opacification of pulmonary arteries. No large central pulmonary embolus. 2. Again evidence for old granulomatous disease. 3. No new or acute cardiopulmonary abnormalities. CT DI 23.69
== END 2018-07-11 13:15 | disposition home or self-care (01) ==
LOC: ED 10:58
DX: R00.0 Tachycardia, unspecified (principal); E87.6 Hypokalemia; R00.2 Palpitations; R07.9 Chest pain, unspecified; R42 Dizziness and giddiness; Z79.899 Other long term (current) drug therapy
CPT/HCPCS: 36000; 36415; 71260; 80053; 82550; 83735; 83880; 84484; 85025; 85379; 85610; 85730; 93005; 93041; 96360; 96374; 96375; 99284; 99285; J1200; J1720; A9270-GY

== ENCOUNTER 2018-08-31 13:46 | Emergency (ER) | payer BC ==
[2018-08-31] MEDS ORDERED: TORAdol 30 mg Injection IM ONE (13:59)
[2018-08-31] MEDS ORDERED: Rocephin 1000 MG INJ IM ONE (13:59)
[2018-08-31] MEDS ORDERED: Rocephin 1000 MG INJ ONE (14:03)
[2018-08-31] MEDS ORDERED: TORAdol 30 mg Injection ONE (14:03)
[2018-08-31] MEDS ORDERED: XYLOCAINE 1% HCL 20 ML MDV ONE (14:03)
--- NOTE | 2018-08-31 14:05 | ERPHSYRPT ---
- History of Present Illness Time Seen by Provider: 08/31/18 14:00 Source: patient Exam Limitations: no limitations Patient Subjective Stated Complaint: pt states he woke up about 2 hours ago and left ear red,swollen and painful Triage Nursing Assessment: pt alert and walked in, resp easy, skin w/d/p. has redness and swelling to left ear, no drainage noted Physician History: pt states he woke up about 2 hours ago and left ear red,swollen and painful, no fever or chills Timing/Duration: abrupt onset Severity: moderate ENT Location: ear (L) Prearrival Treatment: no prearrival treatment Associated Symptoms: ear pain (L), No drooling, No ear drainage, No facial pain/ swelling, No hearing loss Allergies/Adverse Reactions: Iodinated Contrast- Oral and IV Dye Allergy (Mild, Verified 08/31/18 13:55) Itching Home Medications: Lisinopril 40 mg PO DAILY 01/20/18 [History] Hx Tetanus, Diphtheria Vaccination/Date Given: Yes (2) Hx Influenza Vaccination/Date Given: No Hx Pneumococcal Vaccination/Date Given: No - Review of Systems Constitutional: No Symptoms Eyes: No Symptoms Ears, Nose, & Throat: Ear Pain, No Ear Discharge, No Hearing Changes, No Tinnitus Respiratory: No Symptoms Cardiac: No Symptoms Abdominal/Gastrointestinal: No Symptoms Musculoskeletal: No Symptoms Skin: Induration (left ear pinna) Neurological: No Symptoms - Past Medical History Pertinent Past Medical History: Yes Neurological History: No Pertinent History ENT History: No Pertinent History Cardiac History: Hypertension, Other Respiratory History: Pulmonary Embolism Endocrine Medical History: No Pertinent History Musculoskeletal History: No Pertinent History GI Medical History: No Pertinent History History: No Pertinent History Psycho-Social History: Attention Deficit Disorder, Bipolar, Depression Male Reproductive Disorders: No Pertinent History Other Medical History: adhd - Past Surgical History Past Surgical History: Yes Neuro Surgical History: No Pertinent History Cardiac: No Pertinent History Respiratory: No Pertinent History Gastrointestinal: No Pertinent History Genitourinary: No Pertinent History Musculoskeletal: Orthopedic Surgery Male Surgical History: No Pertinent History Other Surgical History: left ankle fracture repair. DISTAL HUMERUS FRACTURE REPAIR - Social History Smoking Status: Never smoker How long have you smoked: 5-6 YEARS Exposure to second hand smoke: No Alcohol Use: Socially Drug Use: none Patient Lives Alone: Yes Significant Family History: no pertinent family hx - Nursing Vital Signs Nursing Vital Signs: Initial Vital Signs Temperature 98 F 08/31/18 13:50 Pulse Rate 73 08/31/18 13:50 Respiratory Rate 16 08/31/18 13:50 Blood Pressure 140/104 08/31/18 13:50 O2 Sat by Pulse Oximetry 100 08/31/18 13:50 Pain Scale Pain Intensity 6 - Physical Exam General Appearance: no apparent distress Eye Exam: bilateral eye: normal inspection, PERRL, EOMI, abnormal EOM, abnormal pupil, conjunctival hemorrhage, photophobia, vision changes, other Ear Exam: right ear: auricle normal, canal normal, TM normal, bleeding, discharge, foreign body, TM dull, TM bulging, TM perforation, other, left ear: erythema, swelling, tenderness, TM red Nasal Exam: normal inspection Throat Exam: normal Neck Exam: normal inspection Cardiovascular/Respiratory Exam: chest non-tender SpO2: 100 Oxygen Delivery: Room Air - Course Nursing assessment & vital signs reviewed: Yes Ordered Tests: Medication Summary Generic Name Dose Route Start Last Admin Trade Name Freq PRN Reason Stop Dose Admin Ceftriaxone Sodium 1,000 mg 08/31/18 13:59 Rocephin 1000 Mg Inj IM 08/31/18 14:00 STAT ONE Ketorolac Tromethamine 60 mg 08/31/18 13:59 Toradol 30 Mg Injection IM 08/31/18 14:00 STAT ONE - Progress Progress: unchanged Counseled pt/family regarding: diagnosis, need for follow-up - Departure Time of Disposition: 14:02 Departure Disposition: Home Clinical Impression: Otitis externa Qualifiers: Otitis externa type: unspecified type Chronicity: acute Laterality: left Qualified Code(s): H60.502 - Unspecified acute noninfective otitis externa, left ear Condition: Stable Critical Care Time: No Referrals: RAJ MATTHEW MD [Primary Care Provider] - Instructions: Outer Ear Infection (DC) Additional Instructions: Please follow the instructions given to you. Please take your medication as prescribed if given. If symptoms recur or get worse, come back to the emergency room if you cannot reach your primary care physician, or call your primary care physician for an appointment. Again if your symptoms get worse, come back to the emergency room. Thanks for visiting emergency room, and let us take care of you. NADYAROMA GRANT was seen on 08/31/18 n the Emergency Room. At that time you were treated for an emergent condition, during your visit Laboratory, Radiology and/or other procedures may have been ordered. It is very important that you follow-up with your Primary Care Physician RAJ MATTHEW within the next 24- 48 hours to review your Emergency Room visit and the final results of testing that was ordered. Some test results such as Urine Cultures, Blood Cultures, and other cultures if ordered will not be finalized for 24-48 hours. If you do not have a Primary Care Provider please call the medical records department at [phone] ext [phone] to obtain a copy of your results or you may sign into our patient portal to obtain these results by visiting us @ [email or web address] and completing the following steps: 1. Click on the Patient Portal link 2. Click the Patient Self Enrollment Link to complete the enrollment form and entering your 3. Once the enrollment form is completed you will receive an email with a temporary ID and password at the email address you provided. 4. Next choose a user name and password. Your user name must be at least 4 characters long and your password must be at least 4 characters long. 5. Choose a security question from the list and provide your answer to the question. If you already have signed into the Health Portal you may access your Health Care Information 10/06 by the following steps: 1. Login to our website @ [email or web address] 2. Enter your original user name and password. FAQS The [facility] Health Portal is an online tool that contains your Lab Results, Radiology Reports, Visit History, Discharge Instructions and Health Summary Lab and Radiology Results will not be available for 72 hours on the portal. The Portal is a secure site, passwords are encryted and URLs are re-written so they cannot be copied and pasted. You and authorized family members are the only ones who can access your Portal. Also there is a timeout feature that protects your information if you leave the Portal page open. If you have technical difficulty please use the Contact Us link on the page this will allow you to submit any questions you have regarding the Portal or you may contact the Medical Record Department at [phone]. [place] 1. If antibiotics are prescribed, take them as directed until gone. 2. Decongestants may be useful. 3. Avoid inserting objects into the ear, such as Q-tips. 4. Acetaminophen or Ibuprofen as directed may help reduce any temperature and help with any associated pain. 5. Contact your child's family physician if there is no improvement in the child's condition within 48 hours. Prescriptions: Amoxicillin 500 mg PO TID #30 tablet Ciprofloxacin HCl/Dexameth [Ciprodex Otic Suspension] 7.5 ml OT QID #7.5 drops.susp Naproxen 500 mg [Naprosyn 500 MG] 500 mg PO BIDAC #20 tablet
[2018-08-31 14:29] VITALS: BP 134/79; PULSE 66; O2SAT 95
== END 2018-08-31 14:30 | disposition home or self-care (01) ==
LOC: ED 13:46
DX: H60.92 Unspecified otitis externa, left ear (principal)
CPT/HCPCS: 96372; 99284; J0696; J1885

== ENCOUNTER 2018-10-20 14:32 | Emergency (ER) | payer SELFPAY ==
[2018-10-20 14:43] VITALS: PULSE 80
[2018-10-20] MEDS ORDERED: Zofran 4 MG/2 ML VIAL IV ONE (14:58)
[2018-10-20] MEDS ORDERED: MORPHINE SULFATE 10 MG/ML IM ONE (14:58)
--- NOTE | 2018-10-20 14:58 | ERPHSYRPT ---
- History of Present Illness Time Seen by Provider: 10/20/18 14:49 Source: patient Exam Limitations: no limitations Patient Subjective Stated Complaint: pt states he was up eight feet on ladder and ladder broke and pt fell to plywood floor, unsure of loc, pt drove self here. c coller applied on arrival Triage Nursing Assessment: pt alert, resp easy, skin w/d/p, pupils equal and reactive, co pain to neck and head pain. abrasion to top of head, pt states he vomited x1 Physician History: The patient is a 33-year-old male complaining that while he was removing items from a loft in a barn, the ladder upon which he was standing broke, causing him to fall. As he was falling, he tried to prevent the fall by grabbing the front of the loft. The loft broke. He fell to the plywood floor below, striking his head. The loft also fell and struck him on the head. Things are a little "fuzzy". He may have lost consciousness but he is unsure. He denies numbness or tingling. He moves all extremities. He complains of head pain and neck pain. He vomited soon after the fall. He was immediately placed in a c-collar upon arrival. His last tetanus vaccination was 2 years ago. History medical history is significant for, pulmonary embolism. Occurred: just prior to arrival Reason for Fall: lost balance, fell from height (8 feet) Injuries/Pain Location: head, neck Loss of Consciousness: brief (seconds), unsure Quality: burning, sharpness Severity of Pain-Max: severe Severity of Pain-Current: severe Modifying Factors: Improves With: nothing Associated Symptoms (Fall): headache, neck pain, vomiting, No back pain, No extremity injury, No trouble walking Allergies/Adverse Reactions: Iodinated Contrast- Oral and IV Dye Allergy (Mild, Verified 10/20/18 14:43) Itching Home Medications: Lisinopril 40 mg PO DAILY 01/20/18 [History] Nebivolol HCl [Bystolic] 10 mg DAILY 10/20/18 [History] Hx Tetanus, Diphtheria Vaccination/Date Given: Yes Hx Influenza Vaccination/Date Given: No Hx Pneumococcal Vaccination/Date Given: No Immunizations Up to Date: Yes - Review of Systems Constitutional: No Fever, No Chills Eyes: No Symptoms Ears, Nose, & Throat: No Symptoms Respiratory: No Cough, No Dyspnea Cardiac: No Chest Pain, No Edema, No Syncope Abdominal/Gastrointestinal: No Abdominal Pain, No Nausea, No Vomiting, No Diarrhea Genitourinary Symptoms: No Dysuria Musculoskeletal: Neck Pain, Fall, Injury Skin: No Rash Neurological: Headache Psychological: No Symptoms Endocrine: No Symptoms Hematologic/Lymphatic: No Symptoms Immunological/Allergic: No Symptoms All Other Systems: Reviewed and Negative - Past Medical History Pertinent Past Medical History: Yes Neurological History: No Pertinent History ENT History: No Pertinent History Cardiac History: Hypertension, Other Respiratory History: Pulmonary Embolism Endocrine Medical History: No Pertinent History Musculoskeletal History: No Pertinent History GI Medical History: No Pertinent History History: No Pertinent History Psycho-Social History: Attention Deficit Disorder, Bipolar, Depression Male Reproductive Disorders: No Pertinent History Other Medical History: adhd - Past Surgical History Past Surgical History: Yes Neuro Surgical History: No Pertinent History Cardiac: No Pertinent History Respiratory: No Pertinent History Gastrointestinal: No Pertinent History Genitourinary: No Pertinent History Musculoskeletal: Orthopedic Surgery Male Surgical History: No Pertinent History Other Surgical History: left ankle fracture repair. DISTAL HUMERUS FRACTURE REPAIR - Social History Smoking Status: Never smoker How long have you smoked: 5-6 YEARS Exposure to second hand smoke: No Alcohol Use: Socially Drug Use: none Patient Lives Alone: No Significant Family History: no pertinent family hx - Nursing Vital Signs Nursing Vital Signs: Initial Vital Signs Temperature 98.0 F 10/20/18 14:41 Pulse Rate 80 10/20/18 14:41 Respiratory Rate 16 10/20/18 14:41 Blood Pressure 161/95 10/20/18 14:41 O2 Sat by Pulse Oximetry 100 10/20/18 14:41 Pain Scale Pain Intensity 7 - Lasara Coma Score Best Eye Response (Lasara): (4) open spontaneously Best Verbal Response (Dahlia): (5) oriented Best Motor Response (Dahlia): (6) obeys commands Dahlia Total: 15 - Physical Exam General Appearance: severe distress Head Injury: contusions (vertex) Eye Exam: PERRL/EOMI ENT Exam: airway nml Neck Exam: pain on movement of neck, c-collar in place Respiratory/Chest Exam: normal breath sounds, No chest tenderness, No respiratory distress Cardiovascular Exam: normal heart sounds, regular rate/rhythm Gastrointestinal Exam: soft, No tenderness, No distention, No guarding, No ecchymosis Rectal Exam: not done Back Exam: normal inspection, No vertebral tenderness Extremity Exam: normal inspection, normal range of motion, pelvis stable, No deformities Neurologic Exam: alert, oriented x 3, cooperative, sensation nml, No motor deficits Skin Exam: normal color, warm, dry SpO2 Interpretation: normal SpO2: 100 Oxygen Delivery: Room Air - CT Exams Head CT Interpretation: Negative, Tele-radiologist Report (per Dr Muñoz), No/ Intracranial Hemorrhag Cervical Spine CT Interpretation: Negative, Tele-radiologist Report (per Dr Muñoz), No Fracture, No Subluxation Ordered Tests: Active Orders 24 hr Category Date Time Status Cervical Collar Application STAT Care 10/20/18 14:58 Active IV Insertion STAT Care 10/20/18 14:58 Active CERVICAL SPINE WO CONTRAST [CT] Stat Exams 10/20/18 14:59 Completed HEAD WITHOUT CONTRAST [CT] Stat Exams 10/20/18 14:59 Completed Medication Summary Discontinued Medications Generic Name Dose Route Start Last Admin Trade Name Freq PRN Reason Stop Dose Admin Morphine Sulfate 10 mg 10/20/18 14:58 10/20/18 15:30 Morphine Sulfate 10 Mg/Ml IM 10/20/18 14:59 Not Given STAT ONE Morphine Sulfate 10 mg 10/20/18 15:05 10/20/18 15:30 Morphine Sulfate 10 Mg/Ml IV 10/20/18 15:06 10 mg STAT ONE Administration Morphine Sulfate Confirm 10/20/18 15:03 Morphine Sulfate 10 Mg/Ml Administered 10/20/18 15:04 Dose 10 mg .ROUTE .STK-MED ONE Ondansetron HCl 4 mg 10/20/18 14:58 10/20/18 15:03 Zofran 4 Mg/2 Ml Vial IV 10/20/18 14:59 4 mg STAT ONE Administration Ondansetron HCl Confirm 10/20/18 15:02 Zofran 4 Mg/2 Ml Vial Administered 10/20/18 15:03 Dose 4 mg .ROUTE .STK-MED ONE - Progress Progress: improved Progress Note: 10/20/18 17:[address] Matthew who accepts the patient in the hospital for observation contingent upon the patient wanting to stay in the hospital. I discussed with the patient a recommendation to have him stay in the hospital but the patient is adamant and does not want to stay for fear of losing a newly acquired job. He was stay at his mom's house tonight. His mother lives very close to the hospital and will return if his condition worsens. Discussed with : Maggy Counseled pt/family regarding: diagnosis, need for follow-up, rad results - Departure Time of Disposition: 17:14 Departure Disposition: Home Clinical Impression: Concussion, Vomiting Condition: Stable Critical Care Time: No Referrals: RAJ MATTHEW MD [Primary Care Provider] - Additional Instructions: You have a concussion from a fall this afternoon. You were given Toradol 30 mg , morphine 10 mg, and Zofran 4 mg by IV in the ER. The head CT and the C-spine CT were both negative. I discussed your condition with Dr. Matthew and we recommend that you stay in the hospital tonight. However, you are very concerned about losing your new job and therefore you want to go home. Please stay at your mother's house so she can monitor you tonight. Take Phenergan 25 mg suppositories every 8 hours as needed for nausea and vomiting. You can also take Tylenol 1000 mg every 6-8 hours as needed. Follow-up with Dr. Matthew in 2 days as previously scheduled. Prescriptions: Promethazine HCl 25 mg Supp [Phenergan 25 mg Supp] 25 mg WI Q8H PRN PRN # 10 supp.rect PRN Reason: Vomiting
[2018-10-20] MEDS ORDERED: Zofran 4 MG/2 ML VIAL ONE (15:02)
[2018-10-20] MEDS ORDERED: MORPHINE SULFATE 10 MG/ML ONE (15:03)
[2018-10-20] MEDS ORDERED: MORPHINE SULFATE 10 MG/ML IV ONE (15:05)
--- NOTE | 2018-10-20 16:17 | XRAY ---
Indication: Pain following 8-9 foot fall from ladder. Multiple contiguous axial images obtained through the head without contrast. Comparison: June 18, 2017. Again normal appearing brain parenchyma, ventricles, and bony calvarium. Visualized paranasal sinuses and mastoid air cells are clear. Impression: Stable normal CT head without contrast exam. CTDI 50.38
--- NOTE | 2018-10-20 16:22 | XRAY ---
Indication: Pain following 8-9 foot fall from ladder. Multiple contiguous axial images obtained through the cervical spine. Sagittal and coronal reformatted images obtained. Comparison: December 24, 2015. Axial images again negative for acute fracture, suspicious bony lesions, or spinal canal stenosis. New left C3-C4 degenerative endplate spurring. Sagittal and coronal reformatted images again demonstrates normal alignment with vertebral lightheadedness disc spaces maintained. No acute compression fracture, subluxation, or jumped facet. Normal-appearing craniocervical junction. Visualized noncontrasted soft tissues including lung apices unremarkable. CT head reported separately. Impression: 1. C3-C4 degenerative spurring. 2. Remaining CT cervical spine is negative. CTDI 63.42
[2018-10-20] MEDS ORDERED: TORAdol 30 mg Injection IV ONE (17:16)
[2018-10-20] MEDS ORDERED: TORAdol 30 mg Injection ONE (17:32)
[2018-10-20 17:54] VITALS: BP 160/90; O2SAT 98
== END 2018-10-20 17:54 | disposition home or self-care (01) ==
LOC: ED 14:32
DX: S06.0X0A Concussion without loss of consciousness, initial encounter (principal); R11.10 Vomiting, unspecified; R51 Headache; M54.2 Cervicalgia; W11.XXXA Fall on and from ladder, initial encounter; Y93.89 Activity, other specified; Y92.008 Other place in unspecified non-institutional (private) residence as the place of occurrence of the external cause; Z79.899 Other long term (current) drug therapy
CPT/HCPCS: 70450; 72125; 96374; 96375; 99284; J1885; J2270; J2405; L0172

== ENCOUNTER 2020-11-06 18:50 | Emergency (ER) | payer BC ==
[2020-11-06] MEDS ORDERED: Zofran 4 MG/2 ML VIAL IV ONE (19:25)
[2020-11-06] MEDS ORDERED: TORAdol 30 mg Injection IV ONE (19:25)
[2020-11-06] MEDS ORDERED: TORAdol 30 mg Injection ONE (19:31)
[2020-11-06] MEDS ORDERED: Zofran 4 MG/2 ML VIAL ONE (19:31)
[2020-11-06 19:39] LABS: Absolute Neutrophil Ct (ANC) 5.97 (1.4-6.9); BASOPHIL % 0.4 % (0.0-0.4); Basophil (Absolute #) 0.04 (0-0.4); Eosinophil (Absolute #) 0.41 (0-0.5); Hematocrit 43.2 % (42-50); Hemoglobin 14.7 gm/dl (12.5-18.0); Lymphocyte (Absolute #) 3.17 (1.0-4.6); Lymphocytes % 30.6 % (24.0-44.0); Mean Corpuscular Hemoglobin 29.9 pg (26-32); Mean Platelet Volume 9.4 fl (7.5-11.0); Monocyte (Absolute #) 0.78 (0.0-1.3); Monocytes % 7.5 % (0.0-12.0); Neutrophil % 57.5 % (36.0-66.0); Platelet Count 271 K/mm3 (150-450); Red Blood Count 4.91 M/mm3 (4.1-5.6); Red Cell Distribution Width 12.7 % (11.5-14.0); White Blood Count 10.4 K/mm3 (4.0-10.5)
[2020-11-06 19:45] LABS: Amourphous Crystal FEW /HPF (NEGATIVE); Appearance CLOUDY (CLEAR); Bilirubin NEGATIVE (NEGATIVE); Blood NEGATIVE Ery/ul (0-5); Glucose NEGATIVE (NEGATIVE); Ketones NEGATIVE (NEGATIVE); Leukocyte Esterase NEGATIVE (NEGATIVE); Nitrite NEGATIVE (NEGATIVE); Protein,Urine Dip NEGATIVE (Negative); Specific Gravity 1.017 (1.005-1.025); Urobilinogen NEGATIVE mg/dL (0-1)
[2020-11-06 19:52] LABS: ALBUMIN 4.4 g/dL (3.5-5.0); ALKALINE PHOSPHATASE 73 U/L (38-126); ANION GAP 12.1 MEQ/L (5-15); BLOOD UREA NITROGEN 13 mg/dL (9-20); CHLORIDE 105 mmol/L (98-107); Calcium 9.5 mg/dL (8.4-10.2); Carbon Dioxide 26 mmol/L (22-30); Creatinine 1 0.91 mg/dL (0.66-1.25); Direct Bilirubin 0.1 mg/dL (0.0-0.4); EST GLOMERULAR FILTRATION RATE > 60.0 ML/MIN; Glucose 113 mg/dL (74-106); LIPASE 180 U/L (23-300); Potassium 4.2 mmol/L (3.5-5.1); SGOT/AST 37 U/L (17-59); SGPT/ALT 31 U/L (0-50); SODIUM 140 mmol/L (137-145); Total Protein 8.2 g/dL (6.3-8.2)
[2020-11-06] MEDS ORDERED: Hydromorphone 1 mg/ml Injection IV ONE (20:02)
[2020-11-06] MEDS ORDERED: Hydromorphone 1 mg/ml Injection ONE (20:02)
--- NOTE | 2020-11-06 20:08 | ERPHSYRPT ---
- History of Present Illness Time Seen by Provider: 11/06/20 19:15 Source: patient Exam Limitations: no limitations Patient Subjective Stated Complaint: pt states "I have had stomach pain and diarrhea for the past 10 days." pt states "I have had bright yellow diarrhea for the past 10 days and have gone multiple times a day." Triage Nursing Assessment: pt ambulated into the er; pt is axo x3; c/o abd pain that radiates to back and shoulder blades; states 7/10 pain to abd and back; abd is obese, firm, tender to the touch to RUQ; active bowel sounds in all quads; urine yellow and cloudy; clear lung sounds in all lobes; clear heart tones; hypertension; c/o N/D; states vomiting 4 days prior Physician History: The patient is a 35-year-old male who presents with a chief complaint of right upper quadrant abdominal pain that started roughly a week ago. The pain is described as a sharp pain that radiates to his back between his shoulder blades and is constant. The pain is now moderate to severe in severity and became more severe 3 hours ago after he ate dinner. The patient is coming from home. He also endorsed having nausea as well as vomiting that has been nonbloody nonbilious. He reportedly has had diarrhea for roughly a week that is been "yellow in color". He denies fever, chills, recent antibiotic use, recent travel outside of the country and any known gallbladder disease. The patient reportedly had a remote history of a pulmonary embolism years ago that was at least reported to be unprovoked for which he is currently not taking anticoagulants for at this time. He denies shortness of breath, chest pain or any pain with taking a deep breath. Timing/Duration: week(s) (1 wek) Severity: moderate Associated Symptoms: nausea, vomiting, abdominal pain, other (Diarrhea) Allergies/Adverse Reactions: Iodinated Contrast Media Allergy (Mild, Verified 11/06/20 19:09) Itching Home Medications: Nebivolol HCl [Bystolic] 10 mg DAILY 10/20/18 [History] Hx Tetanus, Diphtheria Vaccination/Date Given: Yes Hx Influenza Vaccination/Date Given: No Hx Pneumococcal Vaccination/Date Given: No Immunizations Up to Date: Yes Travel Risk - International Travel Have you traveled outside of the country in past 3 weeks: No - Coronavirus Screening Symptoms: Vomiting/Diarrhea Close contact with a COVID-19 positive Pt in past 14-21 Days: No - Review of Systems Constitutional: No Fever, No Chills, No Fatigue Ears, Nose, & Throat: No Symptoms Abdominal/Gastrointestinal: Abdominal Pain, Nausea, Vomiting, Other (Diarrhea) Genitourinary Symptoms: No Dysuria, No Frequency, No Hematuria Musculoskeletal: Back Pain Skin: No Symptoms Neurological: No Symptoms Psychological: No Symptoms All Other Systems: Reviewed and Negative - Past Medical History Pertinent Past Medical History: Yes Neurological History: No Pertinent History ENT History: No Pertinent History Cardiac History: Hypertension, Other Respiratory History: Pulmonary Embolism Endocrine Medical History: No Pertinent History Musculoskeletal History: No Pertinent History GI Medical History: No Pertinent History History: No Pertinent History Psycho-Social History: Attention Deficit Disorder, Bipolar, Depression Male Reproductive Disorders: No Pertinent History Other Medical History: adhd - Past Surgical History Past Surgical History: Yes Neuro Surgical History: No Pertinent History Cardiac: No Pertinent History Respiratory: No Pertinent History Gastrointestinal: No Pertinent History Genitourinary: No Pertinent History Musculoskeletal: Orthopedic Surgery Male Surgical History: No Pertinent History Other Surgical History: left ankle fracture repair. DISTAL HUMERUS FRACTURE REPAIR - Social History Smoking Status: Former smoker How long have you smoked: 5-6 YEARS Exposure to second hand smoke: No Alcohol Use: Socially Drug Use: none Patient Lives Alone: Yes Significant Family History: no pertinent family hx - Nursing Vital Signs Nursing Vital Signs: Initial Vital Signs Temperature 98.8 F 11/06/20 19:10 Pulse Rate 84 11/06/20 19:10 Respiratory Rate 18 11/06/20 19:10 Blood Pressure 149/104 11/06/20 19:10 O2 Sat by Pulse Oximetry 100 11/06/20 19:10 Pain Scale Pain Intensity 3 - Physical Exam General Appearance: mild distress, obese Eye Exam: No scleral icterus Neck Exam: non-tender, supple Respiratory Exam: normal breath sounds, airway intact, No chest tenderness, No lungs clear, No respiratory distress, No diminished breath sounds, No accessory muscle use Cardiovascular Exam: regular rate/rhythm, normal heart sounds, normal peripheral pulses, capillary refill <2 sec, No murmur, No friction rub, No gallop, No edema Gastrointestinal/Abdomen Exam: normal bowel sounds, tenderness (RUQ tenderness with + Forde sign), No distention, No mass, No guarding, No ecchymosis, No rebound Rectal Exam: deferred Back Exam: normal inspection Extremity Exam: normal inspection Neurologic Exam: alert, oriented x 3, cooperative, normal mood/affect Skin Exam: normal color, warm, dry, rash, No petechiae, No jaundice SpO2 Interpretation: normal SpO2: 100 O2 Delivery: Room Air - Course Nursing assessment & vital signs reviewed: Yes - CT Exams Abdomen CT Interpretation: Negative Ordered Tests: Active Orders 24 hr Category Date Time Status IV Insertion STAT Care 11/06/20 19:20 Active NPO Diet 11/06/20 19:21 Active ABDOMEN AND PELVIS W/0 CONTRAS [CT] Stat Exams 11/06/20 20:27 Taken BMP Stat Lab 11/06/20 19:24 Completed CBC W DIFF Stat Lab 11/06/20 19:24 Completed Hepatic Function Panel Stat Lab 11/06/20 19:24 Completed LIPASE Stat Lab 11/06/20 19:24 Completed UA W/RFX UR CULTURE Stat Lab 11/06/20 19:24 Completed Medication Summary Discontinued Medications Generic Name Dose Route Start Last Admin Trade Name Amena PRN Reason Stop Dose Admin Hydrocodone Bitart/Acetaminophen 2 tab 11/06/20 21:29 11/06/20 21:31 Falcon 5/325 Mg PO 11/06/20 21:30 2 tab STAT ONE Administration Hydrocodone Bitart/Acetaminophen Confirm 11/06/20 21:31 Falcon 5/325 Mg Administered 11/06/20 21:32 Dose 2 tab .ROUTE .STK-MED ONE Hydromorphone HCl 1 mg 11/06/20 20:02 11/06/20 20:04 Hydromorphone 1 Mg/Ml Injection IV 11/06/20 20:03 1 mg STAT ONE Administration Hydromorphone HCl Confirm 11/06/20 20:02 Hydromorphone 1 Mg/Ml Injection Administered 11/06/20 20:03 Dose 1 mg .ROUTE .STK-MED ONE Ketorolac Tromethamine 15 mg 11/06/20 19:25 11/06/20 19:36 Toradol 30 Mg Injection IV 11/06/20 19:26 15 mg STAT ONE Administration Ketorolac Tromethamine Confirm 11/06/20 19:31 Toradol 30 Mg Injection Administered 11/06/20 19:32 Dose 30 mg .ROUTE .STK-MED ONE Ondansetron HCl 4 mg 11/06/20 19:25 11/06/20 19:36 Zofran 4 Mg/2 Ml Vial IV 11/06/20 19:26 4 mg STAT ONE Administration Ondansetron HCl Confirm 11/06/20 19:31 Zofran 4 Mg/2 Ml Vial Administered 11/06/20 19:32 Dose 4 mg .ROUTE .STK-MED ONE Lab/Rad Data: Laboratory Result Diagrams 11/06/20 19:24 11/06/20 19:24 Laboratory Results 11/06/20 11/06/20 11/06/20 Range/Units 19:24 19:24 19:24 WBC 10.4 (4.0-10.5) K/mm3 RBC 4.91 (4.1-5.6) M/mm3 Hgb 14.7 (12.5-18.0) gm/dl Hct 43.2 (42-50) % MCV 88.0 (78-100) fl MCH 29.9 (26-32) pg MCHC 34.0 (32-36) g/dl RDW 12.7 (11.5-14.0) % Plt Count 271 (150-450) K/mm3 MPV 9.4 (7.5-11.0) fl Gran % 57.5 (36.0-66.0) % Eos # (Auto) 0.41 (0-0.5) Absolute Lymphs (auto) 3.17 (1.0-4.6) Absolute Monos (auto) 0.78 (0.0-1.3) Lymphocytes % 30.6 (24.0-44.0) % Monocytes % 7.5 (0.0-12.0) % Eosinophils % 4.0 (0.00-5.0) % Basophils % 0.4 (0.0-0.4) % Absolute Granulocytes 5.97 (1.4-6.9) Basophils # 0.04 (0-0.4) Sodium 140 (137-145) mmol/L Potassium 4.2 (3.5-5.1) mmol/L Chloride 105 (98-107) mmol/L Carbon Dioxide 26 (22-30) mmol/L Anion Gap 12.1 (5-15) MEQ/L BUN 13 (9-20) mg/dL Creatinine 0.91 (0.66-1.25) mg/dL Estimated GFR > 60.0 ML/MIN Glucose 113 H (74-106) mg/dL Calcium 9.5 (8.4-10.2) mg/dL Total Bilirubin 0.40 (0.2-1.3) mg/dL Direct Bilirubin 0.1 (0.0-0.4) mg/dL AST 37 (17-59) U/L ALT 31 (0-50) U/L Alkaline Phosphatase 73 (38-126) U/L Serum Total Protein 8.2 (6.3-8.2) g/dL Albumin 4.4 (3.5-5.0) g/dL Lipase 180 (23-300) U/L Urine Color YELLOW (YELLOW) Urine Appearance CLOUDY (CLEAR) Urine pH 7.0 (5-6) Ur Specific Blaine 1.017 (1.005-1.025) Urine Protein NEGATIVE (Negative) Urine Ketones NEGATIVE (NEGATIVE) Urine Blood NEGATIVE (0-5) Ramirez/ul Urine Nitrite NEGATIVE (NEGATIVE) Urine Bilirubin NEGATIVE (NEGATIVE) Urine Urobilinogen NEGATIVE (0-1) mg/dL Ur Leukocyte Esterase NEGATIVE (NEGATIVE) Urine WBC (Auto) NONE (0-5) /HPF Urine RBC (Auto) NONE (0-2) /HPF U Epithel Cells (Auto) NONE (FEW) /HPF Urine Bacteria (Auto) NONE (NEGATIVE) /HPF Amorphous Crystals FEW (NEGATIVE) /HPF Urine Culture Reflexed NO (NO) Urine Glucose NEGATIVE (NEGATIVE) mg/dL - Progress Progress: improved Progress Note: 11/06/20 20:29 Ultrasound is currently unavailable, specifically ultrasound for gallbladder disease and is only available for testicular torsion or ovarian torsion or ectopic . I will go ahead and obtain a noncontrast CT of his abdomen pelvis given that he has a mild contrast allergy to eval for any acute intra- abdominal pathology. If this is negative and the patient's pain is controlled in the emergency department, I believe he can be discharged home to have a formal right upper quadrant ultrasound as an outpatient which will be scheduled upon him being discharged evaluation for gallbladder disease, specifically cholelithiasis. 11/06/20 21:32 The patient was reassessed to find that his pain has significantly improved although mild at this time. Will be given 2 Falcon to take and was instructed that he will need to return for an outpatient right upper quadrant ultrasound to eval for evidence of gallstones that may have not been seen on the CT tonight especially if they are not calcified gallstones. ED return precautions for biliary colic, cholecystitis and choledocholithiasis was given, specifically he was instructed to return if his pain would become worse, yellowing of the skin, fever or trung colored stools. He agreed with and verbally understood the discharge plan. 11/06/20 21:42 Nontoxic in appearance. The patient presents with right upper quadrant abdominal pain that I am suspicious may be due to biliary colic although I am not able to a formal right upper quadrant ultrasound at this time though his CT abdomen pelvis was reassuring in addition to his laboratory work-up at this time. His pain was relieved in the emergency department and I believe he can be discharged home for further evaluation in the form of an outpatient right upper quadrant ultrasound of his gallbladder for further evaluation. He was instru cted to follow-up with general surgery if he indeed had evidence of cholelithiasis. PE at this time in addition to appendicitis. Counseled pt/family regarding: lab results, diagnosis, need for follow-up, rad results - Departure Departure Disposition: Home Clinical Impression: RUQ abdominal pain Condition: Stable Critical Care Time: No Referrals: AMEYA NELSON [ACTIVE STAFF] - Instructions: Acute Abdomen (Belly Pain), Adult (DC) Additional Instructions: You will be contacted with a date and time to have your ultrasound of your gallbladder performed as an outpatient. Please bring the printed prescription for your gallbladder ultrasound with you when you come to the outpatient radiology department. Please avoid eating fatty or greasy foods as this could exacerbate your symptoms. Please drink water. Please return to the emergency department if your pain becomes worse and cannot be controlled with your pain medication, yellowing of the skin, fever specifically a temperature of 100.4 or greater Fahrenheit, trung colored stools or dark-colored urine. Prescriptions: Hydrocodone/APAP 5/325 [Falcon 5/325 mg] 1 - 2 each PO Q6H PRN PRN #16 tablet MDD 8 PRN Reason: Pain Ondansetron ODT 4 MG [Zofran Odt 4 mg] 4 mg PO Q6H PRN PRN #10 tab.rapdis PRN Reason: Nausea/Vomiting Outpatient Orders: GALLBLADDER Facility: [facility], Location: RADIOLOGY
[2020-11-06] MEDS ORDERED: NORCO 5/325 MG PO ONE (21:29)
[2020-11-06] MEDS ORDERED: NORCO 5/325 MG ONE (21:31)
[2020-11-06 21:39] VITALS: BP 135/73; PULSE 72; O2SAT 100
--- NOTE | 2020-11-07 08:48 | XRAY ---
Indication: Right upper quadrant pain. Nausea, vomiting, diarrhea. Multiple contiguous axial images obtained through the abdomen and pelvis without contrast as ordered. Comparison: CT renal stone study August 06, 2015. Lung bases demonstrates stable tiny bibasilar granulomas. No infiltrate or effusion. Heart is not enlarged. Stomach is mildly distended with food. Noncontrasted stomach and bowel loops appear nonobstructed. Normal appendix. Minimal sigmoid diverticulosis without diverticulitis. No free fluid/air. Stable 1 cm right adrenal adenoma, 5 mm right lobe hepatic cyst, and a few splenic calcified granulomas. Remaining liver, gallbladder, pancreas, spleen, adrenal glands, kidneys, ureters, bladder, and aorta appear unremarkable for noncontrast exam. Osseous structures intact. Impression: 1. Incidental sigmoid diverticulosis with stable right adrenal adenoma, tiny hepatic cyst, and old granulomatous disease. 2. Remaining CT abdomen/pelvis without contrast exam is negative. Comment: Preliminary interpretation was made by [facility]. No critical discrepancy.
== END 2020-11-06 21:51 | disposition home or self-care (01) ==
LOC: ED 18:50
DX: R10.11 Right upper quadrant pain (principal)
CPT/HCPCS: 36000; 36415; 74176; 80048; 80076; 81001; 83690; 85025; 96374; 96375; 99284; J1170; J1885; J2405; A9270-GY

== ENCOUNTER 2020-11-27 11:19 | Emergency (ER) | payer BC ==
[2020-11-27] MEDS ORDERED: BABY ASPIRIN 81 MG CHEW PO ONE (11:34)
[2020-11-27] MEDS ORDERED: BABY ASPIRIN 81 MG CHEW ONE (11:36)
[2020-11-27] MEDS ORDERED: MORPHINE SULFATE 2 MG INJ IV ONE ×2 (11:36→13:47)
[2020-11-27] MEDS ORDERED: MORPHINE SULFATE 2 MG INJ ONE (11:39)
[2020-11-27 11:40] LABS: Absolute Neutrophil Ct (ANC) 6.57 (1.4-6.9); BASOPHIL % 0.3 % (0.0-0.4); Basophil (Absolute #) 0.03 (0-0.4); Eosinophil % 3.9 % (0.00-5.0); Eosinophil (Absolute #) 0.42 (0-0.5); Hematocrit 42.7 % (42-50); Hemoglobin 14.8 gm/dl (12.5-18.0); Lymphocyte (Absolute #) 2.98 (1.0-4.6); Lymphocytes % 27.5 % (24.0-44.0); Mean Cell Volume 85.4 fl (78-100); Mean Corpuscular Hemoglobin 29.6 pg (26-32); Mean Corpuscular Hgb Concent. 34.7 g/dl (32-36); Mean Platelet Volume 9.2 fl (7.5-11.0); Monocyte (Absolute #) 0.83 (0.0-1.3); Monocytes % 7.7 % (0.0-12.0); Neutrophil % 60.6 % (36.0-66.0); Platelet Count 324 K/mm3 (150-450); Red Cell Distribution Width 12.1 % (11.5-14.0); White Blood Count 10.8 K/mm3 (4.0-10.5)
[2020-11-27] MEDS ORDERED: Zofran 4 MG/2 ML VIAL IV ONE (11:42)
[2020-11-27] MEDS ORDERED: Zofran 4 MG/2 ML VIAL ONE (11:43)
[2020-11-27 11:47] LABS: INR 1.16 (0.8-3.0); PROTIME 13.1 SECONDS (8.83-12.87)
[2020-11-27 11:49] LABS: PTT 29.3 SECONDS (24.1-36.1)
--- NOTE | 2020-11-27 11:55 | ERPHSYRPT ---
- History of Present Illness Historian: patient Patient Subjective Stated Complaint: Pt has been having issues for the past couple of weeks and came to the hospital and was checked for his gallbladder and now has been vomiting for the past 3 days and then now he has been having a hard time breathing for the past 2-3 hours and having pain in his upper right chest and back Triage Nursing Assessment: Pt drove self to the ER, vitals wnl, pain in upper right chest that radiates to the back, hard to breath, pulses normal, history of a PE, lungs clear, skin n/w/d, N&V, rates pain as 2-01/25 Physician History: 35 yo wm w R sided chest pain w radiation to R scapula x 2 hr. Pain described at a dull ache. It is accompanied by dyspnea/N/V/diaphoresis. He has a h/o PE/HTN but denies DM/hyperlipidemia/tobacco use. Pt was recently seen in the ER for the same complaint, but pain was worse during that episode. He is not on anticoagulants. Timing/Duration: hour(s) (2hr) Activities at Onset: other (Sitting in chair at work) Quality: aching, dullness Location: other (R chest) Modifying Factors: Improves With: nothing Associated Symptoms: nausea, vomiting, shortness of breath, diaphoresis, No cough, No chills, No fever, No fatigue, No weakness, No swelling/lump in chest, No syncope, No rash, No headache, No dizziness, No edema, No back pain Prior Chest Pain/Cardiac Workup: pulmonary embolism Nitro Today/Relief: no nitro taken today Aspirin Treatment Today: no aspirin today Allergies/Adverse Reactions: Iodinated Contrast Media Allergy (Mild, Verified 11/06/20 19:09) Itching Home Medications: Nebivolol HCl [Bystolic] 10 mg PO DAILY 10/20/18 [History] Chlorthalidone 25 mg PO DAILY 11/27/20 [History] Tizanidine HCl 4 mg [Zanaflex 4 MG] 4 mg PO BID 11/27/20 [History] Hx Tetanus, Diphtheria Vaccination/Date Given: Yes Hx Influenza Vaccination/Date Given: No Hx Pneumococcal Vaccination/Date Given: No Travel Risk - International Travel Have you traveled outside of the country in past 3 weeks: No - Coronavirus Screening Are you exhibiting any of the following symptoms?: Yes Symptoms: Shortness of Breath, Vomiting/Diarrhea Close contact with a COVID-19 positive Pt in past 14-21 Days: No - Review of Systems Constitutional: No Symptoms Eyes: No Symptoms Ears, Nose, & Throat: No Symptoms Respiratory: Dyspnea Cardiac: Chest Pain Abdominal/Gastrointestinal: Nausea, Vomiting Genitourinary Symptoms: No Symptoms Musculoskeletal: No Symptoms Skin: No Symptoms Neurological: No Symptoms Psychological: No Symptoms Endocrine: No Symptoms Hematologic/Lymphatic: No Symptoms Immunological/Allergic: No Symptoms - Past Medical History Pertinent Past Medical History: Yes Neurological History: No Pertinent History ENT History: No Pertinent History Cardiac History: Hypertension, Other Respiratory History: Pulmonary Embolism Endocrine Medical History: No Pertinent History Musculoskeletal History: No Pertinent History GI Medical History: No Pertinent History History: No Pertinent History Psycho-Social History: Attention Deficit Disorder, Bipolar, Depression Male Reproductive Disorders: No Pertinent History Other Medical History: adhd - Past Surgical History Past Surgical History: Yes Neuro Surgical History: No Pertinent History Cardiac: No Pertinent History Respiratory: No Pertinent History Gastrointestinal: No Pertinent History Genitourinary: No Pertinent History Musculoskeletal: Orthopedic Surgery Male Surgical History: No Pertinent History Other Surgical History: left ankle fracture repair. DISTAL HUMERUS FRACTURE REPA IR - Social History Smoking Status: Former smoker How long have you smoked: 5-6 YEARS Exposure to second hand smoke: No Alcohol Use: Socially Drug Use: none Patient Lives Alone: Yes Significant Family History: no pertinent family hx - Nursing Vital Signs Nursing Vital Signs: Initial Vital Signs Temperature 98.5 F 11/27/20 11:21 Pulse Rate 79 11/27/20 11:21 Respiratory Rate 11 L 11/27/20 11:21 Blood Pressure 135/81 11/27/20 11:21 O2 Sat by Pulse Oximetry 100 11/27/20 11:21 Pain Scale Pain Intensity 6 - Physical Exam General Appearance: no apparent distress, anxiety Eye Exam: PERRL/EOMI, eyes nml inspection Ears, Nose, Throat Exam: normal ENT inspection, TMs normal, pharynx normal, moist mucous membranes Neck Exam: normal inspection, non-tender, supple, full range of motion, No meningismus, No mass, No Brudzinski, No Kernig's Respiratory Exam: normal breath sounds, lungs clear, airway intact, No respiratory distress Cardiovascular Exam: regular rate/rhythm, normal heart sounds, normal peripheral pulses, No murmur Gastrointestinal/Abdomen Exam: soft, normal bowel sounds, No tenderness Back Exam: normal inspection, normal range of motion, No CVA tenderness, No vertebral tenderness Extremity Exam: normal inspection, normal range of motion, pelvis stable Neurologic Exam: alert, oriented x 3, cooperative, instructional coordinator II-XII nml as tested, normal mood/affect, nml cerebellar function, nml station & gait, sensation nml, No motor deficits, No sensory deficit Skin Exam: normal color, warm, dry, No rash Lymphatic Exam: No adenopathy SpO2 Interpretation: normal SpO2: 100 O2 Delivery: Room Air - Course Nursing assessment & vital signs reviewed: Yes EKG Interpreted by Me: RATE (NSR/R81/Prolonged QTc/Flat T waves) - CT Exams Chest CT Interpretation: Tele-radiologist Report (CTA of chest-no evidence of aortic dissection) - Radiology Ultrasound Exam Gallbladder Ultrasound: Other (No stones per US tech) Ordered Tests: Active Orders 24 hr Category Date Time Status Pedicab Driver STAT Care 11/27/20 11:23 Completed EKG-ER Only STAT Care 11/27/20 11:22 Completed IV Insertion STAT Care 11/27/20 11:22 Completed CTA CHEST W AND/OR WO [CT] Stat Exams 11/27/20 13:16 Taken GALLBLADDER [US] Stat Exams 11/27/20 13:52 Taken CBC W DIFF Stat Lab 11/27/20 11:38 Completed CMP Stat Lab 11/27/20 11:38 Completed D-DIMER QUANTITATIVE Stat Lab 11/27/20 11:42 Completed MAGNESIUM Stat Lab 11/27/20 11:38 Completed NT PRO BNP Stat Lab 11/27/20 11:38 Completed PROTIME WITH INR Stat Lab 11/27/20 11:38 Completed PTT Stat Lab 11/27/20 11:38 Completed TROPONIN Q3H Lab 11/27/20 11:38 Completed TROPONIN Q3H Lab 11/27/20 14:56 Completed TROPONIN Q3H Lab 11/27/20 17:30 Ordered TROPONIN Q3H Lab 11/27/20 20:30 Ordered TROPONIN Q3H Lab 11/27/20 23:30 Ordered Medication Summary Discontinued Medications Generic Name Dose Route Start Last Admin Trade Name Freq PRN Reason Stop Dose Admin Aspirin 324 mg 11/27/20 11:34 11/27/20 11:40 Baby Aspirin 81 Mg Chew PO 11/27/20 11:35 324 mg STAT ONE Administration Aspirin Confirm 11/27/20 11:36 Baby Aspirin 81 Mg Chew Administered 11/27/20 11:37 Dose 324 mg .ROUTE .STK-MED ONE Diphenhydramine HCl 25 mg 11/27/20 13:14 11/27/20 13:18 Benadryl 50 Mg/Ml IV 11/27/20 13:15 25 mg STAT ONE Administration Diphenhydramine HCl Confirm 11/27/20 13:18 Benadryl 50 Mg/Ml Administered 11/27/20 13:19 Dose 50 mg .ROUTE .STK-MED ONE Potassium Chloride/Sodium Chloride 1,000 mls @ 100 mls/hr 11/27/20 12:30 11/27/20 13:09 Sodium Chloride 0.9% W/ 40 Meq Kcl 1000ml IV 12/27/20 12:29 100 mls/hr .Q10H CADENCE Administration Methylprednisolone Sodium Succinate 125 mg 11/27/20 13:15 11/27/20 13:18 Solu-Medrol 125 Mg IV 11/27/20 13:16 125 mg STAT ONE Administration Methylprednisolone Sodium Succinate Confirm 11/27/20 13:18 Solu-Medrol 125 Mg Administered 11/27/20 13:19 Dose 125 mg .ROUTE .STK-MED ONE Morphine Sulfate 4 mg 11/27/20 11:36 11/27/20 11:40 Morphine Sulfate 2 Mg Inj IV 11/27/20 11:37 4 mg STAT ONE Administration Morphine Sulfate Confirm 11/27/20 11:39 Morphine Sulfate 2 Mg Inj Administered 11/27/20 11:40 Dose 4 mg .ROUTE .STK-MED ONE Morphine Sulfate 4 mg 11/27/20 13:47 11/27/20 13:48 Morphine Sulfate 2 Mg Inj IV 11/27/20 13:48 4 mg STAT ONE Administration Morphine Sulfate Confirm 11/27/20 13:47 Morphine Sulfate 4 Mg Inj Administered 11/27/20 13:48 Dose 4 mg .ROUTE .STK-MED ONE Ondansetron HCl 4 mg 11/27/20 11:42 11/27/20 11:44 Zofran 4 Mg/2 Ml Vial IV 11/27/20 11:43 4 mg STAT ONE Administration Ondansetron HCl Confirm 11/27/20 11:43 Zofran 4 Mg/2 Ml Vial Administered 11/27/20 11:44 Dose 4 mg .ROUTE .STK-MED ONE Lab/Rad Data: Laboratory Result Diagrams 11/27/20 11:38 11/27/20 11:38 Laboratory Results 11/27/20 11/27/20 11/27/20 Range/Units 14:56 11:42 11:38 WBC (4.0-10.5) K/mm3 RBC (4.1-5.6) M/mm3 Hgb (12.5-18.0) gm/dl Hct (42-50) % MCV (78-100) fl MCH (26-32) pg MCHC (32-36) g/dl RDW (11.5-14.0) % Plt Count (150-450) K/mm3 MPV (7.5-11.0) fl Gran % (36.0-66.0) % Eos # (Auto) (0-0.5) Absolute Lymphs (auto) (1.0-4.6) Absolute Monos (auto) (0.0-1.3) Lymphocytes % (24.0-44.0) % Monocytes % (0.0-12.0) % Eosinophils % (0.00-5.0) % Basophils % (0.0-0.4) % Absolute Granulocytes (1.4-6.9) Basophils # (0-0.4) PT (8.83-12.87) SECONDS INR (0.8-3.0) APTT (24.1-36.1) SECONDS D-Dimer < 215 L (215-500) ng/mL Sodium (137-145) mmol/L Potassium (3.5-5.1) mmol/L Chloride (98-107) mmol/L Carbon Dioxide (22-30) mmol/L Anion Gap (5-15) MEQ/L BUN (9-20) mg/dL Creatinine (0.66-1.25) mg/dL Estimated GFR ML/MIN Glucose (74-106) mg/dL Calcium (8.4-10.2) mg/dL Magnesium (1.6-2.3) mg/dL Total Bilirubin (0.2-1.3) mg/dL AST (17-59) U/L ALT (0-50) U/L Alkaline Phosphatase (38-126) U/L Troponin I < 0.012 < 0.012 (0.000-0.034) ng/mL NT-Pro-B Natriuret Pep (0-450) pg/mL Serum Total Protein (6.3-8.2) g/dL Albumin (3.5-5.0) g/dL 11/27/20 11/27/20 11/27/20 Range/Units 11:38 11:38 11:38 WBC 10.8 H (4.0-10.5) K/mm3 RBC 5.00 (4.1-5.6) M/mm3 Hgb 14.8 (12.5-18.0) gm/dl Hct 42.7 (42-50) % MCV 85.4 (78-100) fl MCH 29.6 (26-32) pg MCHC 34.7 (32-36) g/dl RDW 12.1 (11.5-14.0) % Plt Count 324 (150-450) K/mm3 MPV 9.2 (7.5-11.0) fl Gran % 60.6 (36.0-66.0) % Eos # (Auto) 0.42 (0-0.5) Absolute Lymphs (auto) 2.98 (1.0-4.6) Absolute Monos (auto) 0.83 (0.0-1.3) Lymphocytes % 27.5 (24.0-44.0) % Monocytes % 7.7 (0.0-12.0) % Eosinophils % 3.9 (0.00-5.0) % Basophils % 0.3 (0.0-0.4) % Absolute Granulocytes 6.57 (1.4-6.9) Basophils # 0.03 (0-0.4) PT 13.1 H (8.83-12.87) SECONDS INR 1.16 (0.8-3.0) APTT 29.3 (24.1-36.1) SECONDS D-Dimer (215-500) ng/mL Sodium 137 (137-145) mmol/L Potassium 3.0 L (3.5-5.1) mmol/L Chloride 97 L (98-107) mmol/L Carbon Dioxide 31 H (22-30) mmol/L Anion Gap 12.3 (5-15) MEQ/L BUN 27 H (9-20) mg/dL Creatinine 1.26 H (0.66-1.25) mg/dL Estimated GFR > 60.0 ML/MIN Glucose 113 H (74-106) mg/dL Calcium 9.6 (8.4-10.2) mg/dL Magnesium 2.4 H (1.6-2.3) mg/dL Total Bilirubin 0.50 (0.2-1.3) mg/dL AST 21 (17-59) U/L ALT 23 (0-50) U/L Alkaline Phosphatase 81 (38-126) U/L Troponin I (0.000-0.034) ng/mL NT-Pro-B Natriuret Pep 38.3 (0-450) pg/mL Serum Total Protein 8.5 H (6.3-8.2) g/dL Albumin 4.6 (3.5-5.0) g/dL - Progress Progress Note: 11/27/20 1L NS bolus w 20meq KCL 4mg IV MSO4 w improvement in pain Additional 4mg IV MSO4 11/27/20 15:47 CTA of chest neg for AD/Pt pre-medicatated w 25mg IV Benadryl-125mg IV Solumedrol Counseled pt/family regarding: lab results, need for follow-up, rad results - Departure Departure Disposition: Home Clinical Impression: Chest pain Condition: Stable Critical Care Time: No Referrals: RAJ MATTHEW MD [Primary Care Provider] - Instructions: Chest Pain (DC) Additional Instructions: Follow up with Dr. Matthew Return to ER for increasing pain or shortness of breath
[2020-11-27 11:59] LABS: ALBUMIN 4.6 g/dL (3.5-5.0); ALKALINE PHOSPHATASE 81 U/L (38-126); ANION GAP 12.3 MEQ/L (5-15); BLOOD UREA NITROGEN 27 mg/dL (9-20); CHLORIDE 97 mmol/L (98-107); Calcium 9.6 mg/dL (8.4-10.2); Carbon Dioxide 31 mmol/L (22-30); Creatinine 1 1.26 mg/dL (0.66-1.25); EST GLOMERULAR FILTRATION RATE > 60.0 ML/MIN; Glucose 113 mg/dL (74-106); MAGNESIUM 2.4 mg/dL (1.6-2.3); NT PRO BNP 38.3 pg/mL (0-450); SGOT/AST 21 U/L (17-59); SGPT/ALT 23 U/L (0-50); SODIUM 137 mmol/L (137-145); Total Protein 8.5 g/dL (6.3-8.2)
[2020-11-27] MEDS ORDERED: SODIUM CHLORIDE 0.9% W/ 40 mEq KCL 1000ML 1,000 ML IV SCH (12:30)
[2020-11-27] MEDS ORDERED: BENADRYL 50 MG/ML IV ONE (13:14)
[2020-11-27] MEDS ORDERED: solu-MEDROL 125 MG IV ONE (13:15)
[2020-11-27] MEDS ORDERED: solu-MEDROL 125 MG ONE (13:18)
[2020-11-27] MEDS ORDERED: BENADRYL 50 MG/ML ONE (13:18)
[2020-11-27] MEDS ORDERED: MORPHINE SULFATE 4 MG INJ ONE (13:47)
[2020-11-27 15:16] VITALS: BP 110/63; PULSE 58
[2020-11-27 15:48] VITALS: O2SAT 100
--- NOTE | 2020-11-27 18:10 | XRAY ---
Indication: Chest pain and palpitations. Two-dimensional gallbladder sonogram performed. Comparison: None Gallbladder normally distended without gallstones, wall thickening, or pericholecystic fluid. Common bile duct measures 5.6 mm. Fatty echogenic liver without focal solid/cystic mass or ascites. Remaining visualized pancreas and right kidney sonographically unremarkable. Right kidney measures 12.1 m in length. Impression: Fatty liver. Remaining gallbladder sonogram is negative. Comment: Preliminary report was given.
--- NOTE | 2020-11-27 18:14 | XRAY ---
Indication: Chest pain. Conventional contrast enhanced CTA chest performed using 80 cc Isovue 370 contrast. Two-dimensional sagittal and coronal reformatted images obtained. Additional 3-dimensional reformatted images obtained using a separate workstation. Comparison: July 11, 2018. Aorta remains normal in CTA appearance. Heart is not enlarged. No central pulmonary embolus. Stable small mediastinal and bilateral hilar calcified nodes. Lungs are inflated again with a few bilateral calcified granulomas. No suspicious pulmonary mass, infiltrate, or effusion. Bony thorax intact again with minimal degenerative changes throughout the spine. Limited upper abdomen again demonstrates a 5 mm right lobe hepatic cyst/hemangioma and a few splenic calcified granulomas. Impression: 1. Continued negative CTA chest with contrast exam. 2. Stable tiny hepatic cyst/hemangioma and old granulomatous disease. Comment: Preliminary interpretation was made by [facility]. No critical discrepancy.
== END 2020-11-27 15:57 | disposition home or self-care (01) ==
LOC: ED 11:19
DX: R07.89 Other chest pain (principal); R11.2 Nausea with vomiting, unspecified; R06.02 Shortness of breath; Z79.899 Other long term (current) drug therapy; I10 Essential (primary) hypertension; Z86.711 Personal history of pulmonary embolism
CPT/HCPCS: 36000; 36415; 71275; 76705; 80053; 83735; 83880; 84484; 85025; 85379; 85610; 85730; 93005; 93041; 96374; 96375; 96376; 99285; J1200; J2270; J2405; J2930; A9270-GY

== ENCOUNTER 2020-11-27 20:51 | Observation (INO) | payer BC ==
[2020-11-27] MEDS ORDERED: Ativan 2 MG/1 ML VIAL IV ONE (21:16)
[2020-11-27] MEDS ORDERED: Ativan 2 MG/1 ML VIAL ONE (21:17)
[2020-11-27 21:22] LABS: BASOPHIL % 0.1 % (0.0-0.4); Basophil (Absolute #) 0.01 (0-0.4); Eosinophil (Absolute #) 0 (0-0.5); Hematocrit 42.1 % (42-50); Hemoglobin 14.6 gm/dl (12.5-18.0); Lymphocyte (Absolute #) 0.88 (1.0-4.6); Lymphocytes % 9.7 % (24.0-44.0); Mean Cell Volume 85.4 fl (78-100); Mean Corpuscular Hemoglobin 29.6 pg (26-32); Mean Corpuscular Hgb Concent. 34.7 g/dl (32-36); Mean Platelet Volume 9.2 fl (7.5-11.0); Monocyte (Absolute #) 0.07 (0.0-1.3); Monocytes % 0.8 % (0.0-12.0); Neutrophil % 89.4 % (36.0-66.0); Platelet Count 326 K/mm3 (150-450); Red Blood Count 4.93 M/mm3 (4.1-5.6); Red Cell Distribution Width 12.2 % (11.5-14.0); White Blood Count 9.1 K/mm3 (4.0-10.5)
[2020-11-27 21:25] LABS: INR 1.14 (0.8-3.0); PROTIME 12.9 SECONDS (8.83-12.87)
[2020-11-27 21:27] LABS: PTT 29.5 SECONDS (24.1-36.1)
[2020-11-27 21:35] LABS: ALBUMIN 4.5 g/dL (3.5-5.0); ALKALINE PHOSPHATASE 81 U/L (38-126); ANION GAP 13.9 MEQ/L (5-15); BLOOD UREA NITROGEN 28 mg/dL (9-20); CHLORIDE 97 mmol/L (98-107); Calcium 9.9 mg/dL (8.4-10.2); Carbon Dioxide 29 mmol/L (22-30); Creatinine 1 1.33 mg/dL (0.66-1.25); EST GLOMERULAR FILTRATION RATE > 60.0 ML/MIN; Glucose 187 mg/dL (74-106); Potassium 3.6 mmol/L (3.5-5.1); SGOT/AST 24 U/L (17-59); SGPT/ALT 25 U/L (0-50); SODIUM 136 mmol/L (137-145); Total Protein 8.2 g/dL (6.3-8.2)
--- NOTE | 2020-11-27 21:51 | ERPHSYRPT ---
- History of Present Illness Historian: patient Exam Limitations: no limitations Patient Subjective Stated Complaint: Patient states " I was watching TV and I just all of a sudden my heart started pounding and I checked my pulse and it was up around 130" Triage Nursing Assessment: Patient arrived to ER and ambulated to room without difficulty. Patient A/O times 4. Patient gait steady. Patient able to follow instructions without difficulty. Patient lungs clear bilateral A/P throughout. Patient denies chest pain. Patient denies SOB. Patient with non-pitting edema to bilateral lower extremities. + pedal pulses bilateral. + radial pulses bilateral. Cap refill < 3 seconds. Patient was seen in ER earlier today R/T same concern along with back discomfort. Patient denies back pain at this time. Patient denies left arm or jaw discomfort. + BS times 4 quads. ABD large, obese, non-distended. Patient denies N/V. Patient denies H/A or dizziness. Skin turgor < 3 seconds. Patient denies change in appetite or fluid intake. Apical pulse 88 and regular noted upon auscultation. No irregular beat noted after 1 minute. Respiratory regular and easy, non-labored. No S/S of respiratory distress noted. Patient denies pain or discomfort Physician History: 35yo wm seen earlier in day for chest pain w neg trop x2/Neg CTA chest/Neg US gallbladder presents w palpatations while watching tv. Pt states that he still has the R substernal chest pain which is very minimal at present and described as "squeezing".. He denies N/V/D/diaphoresis/dyspnea Timing/Duration: other (Prior to arrival) Activities at Onset: rest Location: substernal (Right) Chest Pain Radiation: back (R scapula as earlier today) Modifying Factors: Improves With: nothing Associated Symptoms: denies symptoms Prior Chest Pain/Cardiac Workup: non-cardiac, pulmonary embolism Nitro Today/Relief: no nitro taken today Aspirin Treatment Today: 325 mg x 1 Allergies/Adverse Reactions: Iodinated Contrast Media Allergy (Mild, Verified 11/27/20 21:01) Itching Home Medications: Nebivolol HCl [Bystolic] 10 mg PO DAILY 10/20/18 [History] Chlorthalidone 25 mg PO DAILY 11/27/20 [History] Tizanidine HCl 4 mg [Zanaflex 4 MG] 4 mg PO BID 11/27/20 [History] Hx Tetanus, Diphtheria Vaccination/Date Given: Yes Hx Influenza Vaccination/Date Given: No Hx Pneumococcal Vaccination/Date Given: No Immunizations Up to Date: Yes Travel Risk - International Travel Have you traveled outside of the country in past 3 weeks: No - Coronavirus Screening Are you exhibiting any of the following symptoms?: No Close contact with a COVID-19 positive Pt in past 14-21 Days: No - Review of Systems Constitutional: No Symptoms Eyes: No Symptoms Ears, Nose, & Throat: No Symptoms Respiratory: No Symptoms Cardiac: Chest Pain, Palpitations Abdominal/Gastrointestinal: No Symptoms Genitourinary Symptoms: No Symptoms Musculoskeletal: No Symptoms Skin: No Symptoms Neurological: No Symptoms Psychological: No Symptoms Endocrine: No Symptoms Hematologic/Lymphatic: No Symptoms Immunological/Allergic: No Symptoms - Past Medical History Pertinent Past Medical History: Yes Neurological History: No Pertinent History ENT History: No Pertinent History Cardiac History: Hypertension, Other Respiratory History: Pulmonary Embolism Endocrine Medical History: No Pertinent History Musculoskeletal History: No Pertinent History GI Medical History: No Pertinent History History: No Pertinent History Psycho-Social History: Attention Deficit Disorder, Bipolar, Depression Male Reproductive Disorders: No Pertinent History Other Medical History: adhd - Past Surgical History Past Surgical History: Yes Neuro Surgical History: No Pertinent History Cardiac: No Pertinent History Respiratory: No Pertinent History Gastrointestinal: No Pertinent History Genitourinary: No Pertinent History Musculoskeletal: Orthopedic Surgery Male Surgical History: No Pertinent History Other Surgical History: Left Ankle Fracture repair. DISTAL HUMERUS FRACTURE REPAIR - Social History Smoking Status: Former smoker How long have you smoked: 5-6 YEARS Exposure to second hand smoke: Yes Alcohol Use: Socially Drug Use: none Patient Lives Alone: Yes Significant Family History: no pertinent family hx - Nursing Vital Signs Nursing Vital Signs: Initial Vital Signs Temperature 97.8 F 11/27/20 20:59 Pulse Rate 98 H 11/27/20 20:59 Respiratory Rate 20 11/27/20 20:59 Blood Pressure 128/81 11/27/20 20:59 O2 Sat by Pulse Oximetry 97 11/27/20 20:59 Pain Scale Pain Intensity 0 - Physical Exam General Appearance: no apparent distress, anxiety Eye Exam: PERRL/EOMI, eyes nml inspection Ears, Nose, Throat Exam: normal ENT inspection, TMs normal, pharynx normal, moist mucous membranes Neck Exam: normal inspection, non-tender, supple, full range of motion, No meningismus, No mass, No Brudzinski, No Kernig's Respiratory Exam: normal breath sounds, lungs clear, airway intact, No respiratory distress Cardiovascular Exam: regular rate/rhythm, normal heart sounds, normal peripheral pulses, No murmur Gastrointestinal/Abdomen Exam: soft, normal bowel sounds, No tenderness Back Exam: normal inspection, normal range of motion, No CVA tenderness, No vertebral tenderness Extremity Exam: normal inspection, normal range of motion Neurologic Exam: alert, oriented x 3, cooperative, echocardiograph tech II-XII nml as tested, normal mood/affect, nml cerebellar function, nml station & gait, sensation nml, No motor deficits, No sensory deficit Skin Exam: normal color, warm, dry, No rash Lymphatic Exam: No adenopathy SpO2 Interpretation: borderline oxygenation SpO2: 93 O2 Delivery: Room Air - Course Nursing assessment & vital signs reviewed: Yes EKG Interpreted by Me: RATE (NSR/Prolonged QTc/Non-specific T wave abnormality) - Radiology Exams Chest X-ray Interpretation: Interpreted by me (CXR neg per ER read) Ordered Tests: Active Orders 24 hr Category Date Time Status Nurse Executive STAT Care 11/27/20 21:08 Completed EKG-ER Only STAT Care 11/27/20 21:08 Completed IV Insertion STAT Care 11/27/20 21:08 Completed CHEST 1 VIEW (PORTABLE) Stat Exams 11/27/20 21:08 Taken CBC W DIFF Stat Lab 11/27/20 21:14 Completed CMP Stat Lab 11/27/20 21:14 Completed LIPID PROFILE AM.LAB Lab 11/28/20 00:15 Completed PROTIME WITH INR Stat Lab 11/27/20 21:14 Completed PTT Stat Lab 11/27/20 21:14 Completed TROPONIN Q3H Lab 11/27/20 21:14 Completed TROPONIN Q3H Lab 11/28/20 00:15 Completed TROPONIN Q3H Lab 11/28/20 03:12 Received TROPONIN Q3H Lab 11/28/20 06:15 Ordered TROPONIN Q3H Lab 11/28/20 09:15 Ordered Medication Summary Generic Name Dose Route Start Last Admin Trade Name Freq PRN Reason Stop Dose Admin Acetaminophen 650 mg 11/27/20 22:57 Tylenol 325 Mg PO 12/27/20 22:56 Q4H PRN PRN PAIN AND/OR FEVER Al Hydrox/Mg Hydrox/Simethicone 30 ml 11/27/20 22:57 Maalox Es 30 Ml Unit Dose PO 12/27/20 22:56 Q4H PRN PRN INDIGESTION Aspirin 325 mg 11/28/20 10:00 Ecotrin 325 Mg PO 12/28/20 09:59 DAILY CADENCE Enoxaparin Sodium 40 mg 11/28/20 10:00 Enoxaparin Sodium SQ 12/28/20 09:59 DAILY CADENCE Magnesium Hydroxide 30 - 60 ml 11/27/20 22:57 Milk Of Magnesia 30 Ml PO 12/27/20 22:56 QDP PRN CONSTIPATION Ondansetron HCl 4 mg 11/27/20 22:57 Zofran 4 Mg/2 Ml Vial IV 12/27/20 22:56 Q4H PRN PRN NAUSEA/VOMITING Senna/Docusate Sodium 2 udtab 11/27/20 22:57 Senokot-S Tablet PO 12/27/20 22:56 BID PRN PRN CONSTIPATION Discontinued Medications Generic Name Dose Route Start Last Admin Trade Name Freq PRN Reason Stop Dose Admin Lorazepam 1 mg 11/27/20 21:16 11/27/20 21:18 Ativan 2 Mg/1 Ml Vial IV 11/27/20 21:17 1 mg STAT ONE Administration Lorazepam Confirm 11/27/20 21:17 Ativan 2 Mg/1 Ml Vial Administered 11/27/20 21:18 Dose 2 mg .ROUTE .K-MED ONE Lab/Rad Data: Laboratory Result Diagrams 11/27/20 21:14 11/27/20 21:14 Laboratory Results 11/27/20 11/27/20 11/27/20 Range/Units 21:50 21:14 21:14 WBC (4.0-10.5) K/mm3 RBC (4.1-5.6) M/mm3 Hgb (12.5-18.0) gm/dl Hct (42-50) % MCV (78-100) fl MCH (26-32) pg MCHC (32-36) g/dl RDW (11.5-14.0) % Plt Count (150-450) K/mm3 MPV (7.5-11.0) fl Gran % (36.0-66.0) % Eos # (Auto) (0-0.5) Absolute Lymphs (auto) (1.0-4.6) Absolute Monos (auto) (0.0-1.3) Lymphocytes % (24.0-44.0) % Monocytes % (0.0-12.0) % Eosinophils % (0.00-5.0) % Basophils % (0.0-0.4) % Absolute Granulocytes (1.4-6.9) Basophils # (0-0.4) PT 12.9 H (8.83-12.87) SECONDS INR 1.14 (0.8-3.0) APTT 29.5 (24.1-36.1) SECONDS Sodium (137-145) mmol/L Potassium (3.5-5.1) mmol/L Chloride (98-107) mmol/L Carbon Dioxide (22-30) mmol/L Anion Gap (5-15) MEQ/L BUN (9-20) mg/dL Creatinine (0.66-1.25) mg/dL Estimated GFR ML/MIN Glucose (74-106) mg/dL Calcium (8.4-10.2) mg/dL Total Bilirubin (0.2-1.3) mg/dL AST (17-59) U/L ALT (0-50) U/L Alkaline Phosphatase (38-126) U/L Troponin I < 0.012 (0.000-0.034) ng/mL Serum Total Protein (6.3-8.2) g/dL Albumin (3.5-5.0) g/dL SARS-CoV-2 (PCR) NEGATIVE (NEGATIVE) 11/27/20 11/27/20 Range/Units 21:14 21:14 WBC 9.1 (4.0-10.5) K/mm3 RBC 4.93 (4.1-5.6) M/mm3 Hgb 14.6 (12.5-18.0) gm/dl Hct 42.1 (42-50) % MCV 85.4 (78-100) fl MCH 29.6 (26-32) pg MCHC 34.7 (32-36) g/dl RDW 12.2 (11.5-14.0) % Plt Count 326 (150-450) K/mm3 MPV 9.2 (7.5-11.0) fl Gran % 89.4 H (36.0-66.0) % Eos # (Auto) 0 (0-0.5) Absolute Lymphs (auto) 0.88 L (1.0-4.6) Absolute Monos (auto) 0.07 (0.0-1.3) Lymphocytes % 9.7 L (24.0-44.0) % Monocytes % 0.8 (0.0-12.0) % Eosinophils % 0.0 (0.00-5.0) % Basophils % 0.1 (0.0-0.4) % Absolute Granulocytes 8.10 H (1.4-6.9) Basophils # 0.01 (0-0.4) PT (8.83-12.87) SECONDS INR (0.8-3.0) APTT (24.1-36.1) SECONDS Sodium 136 L (137-145) mmol/L Potassium 3.6 (3.5-5.1) mmol/L Chloride 97 L (98-107) mmol/L Carbon Dioxide 29 (22-30) mmol/L Anion Gap 13.9 (5-15) MEQ/L BUN 28 H (9-20) mg/dL Creatinine 1.33 H (0.66-1.25) mg/dL Estimated GFR > 60.0 ML/MIN Glucose 187 H (74-106) mg/dL Calcium 9.9 (8.4-10.2) mg/dL Total Bilirubin 0.40 (0.2-1.3) mg/dL AST 24 (17-59) U/L ALT 25 (0-50) U/L Alkaline Phosphatase 81 (38-126) U/L Troponin I (0.000-0.034) ng/mL Serum Total Protein 8.2 (6.3-8.2) g/dL Albumin 4.5 (3.5-5.0) g/dL SARS-CoV-2 (PCR) (NEGATIVE) - Progress Progress Note: 11/27/20 22:[address] Pinto 11/27/20 23:01 1mg IV Ativan w decrease in anxiety Discussed with : Melissa Counseled pt/family regarding: lab results, rad results - Departure Departure Disposition: Observation Clinical Impression: Heart palpitations, Chest pain Condition: Stable Critical Care Time: No
[2020-11-27] MEDS ORDERED: Senokot-S Tablet PO PRN (22:57)
[2020-11-27] MEDS ORDERED: Zofran 4 MG/2 ML VIAL IV PRN (22:57)
[2020-11-27] MEDS ORDERED: MAALOX ES 30 ML UNIT DOSE PO PRN (22:57)
[2020-11-27] MEDS ORDERED: MILK OF MAGNESIA 30 ML PO PRN (22:57)
[2020-11-27] MEDS ORDERED: TYLENOL 325 MG PO PRN (22:57)
[2020-11-28] MEDS ORDERED: FLUZONE QUAD 2020-2021 SYRINGE IM ONE (00:31)
[2020-11-28 07:08] VITALS: O2SAT 94
--- NOTE | 2020-11-28 09:33 | XRAY ---
Indication: Palpitations. Comparison: December 01, 2018. Portable chest less inflated again with incidental calcified granulomas. No focal infiltrate, consolidation, or large effusion. Heart is not enlarged. Bony thorax intact again with mild degenerative changes. Impression: Nonacute chest with chronic features.
[2020-11-28] MEDS ORDERED: hydroDIURIL 25 MG PO SCH (10:00)
[2020-11-28] MEDS ORDERED: Zanaflex 4 MG PO SCH (10:00)
[2020-11-28] MEDS ORDERED: Ecotrin 325 MG PO SCH (10:00)
[2020-11-28] MEDS ORDERED: Bystolic 5 MG PO SCH (10:00)
[2020-11-28] MEDS ORDERED: NON-FORMULARY ITEM (Chlorthalidone [Chlorthalidone] 25 MG) PO SCH (10:00)
[2020-11-28] MEDS ORDERED: ENOXAPARIN SODIUM SQ SCH (10:00)
[2020-11-28 10:44] VITALS: BP 110/60; PULSE 86
== END 2020-11-28 14:15 | disposition home or self-care (01) ==
LOC: ED 20:51 → MED SURG 23:05
PROVIDERS: ADMIT General Practice; ATTEND General Practice
DX: R00.2 Palpitations (principal); I20.9 Angina pectoris, unspecified; R07.9 Chest pain, unspecified; Z79.899 Other long term (current) drug therapy; I10 Essential (primary) hypertension; Z86.711 Personal history of pulmonary embolism
CPT/HCPCS: 36000; 36415; 71045; 71275; 76705; 80053; 80061; 83721; 83735; 83880; 84484; 85025; 85379; 85610; 85730; 93005; 93041; 93268; 96374; 96375; 96376; 99285; G0378; Q3014; U0003; J1200; J2060; J2270; J2405; J2930; A9270-GY